=== PATIENT | female | born 2005 | race Caucasian/White ===

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

== ENCOUNTER → 2023-09-14 16:45 | Outpatient (ROUT) | payer OTHER, MEDICAID, SELFPAY ==
[2023-09-14 17:08] LABS: Basophils Absolute Auto 0 /uL (0-100); Basophils Percent Auto 0.4 % (0-2); Eosinophils Absolute Auto 100 /uL (0-450); Eosinophils Percent Auto 2.5 % (2-4); Hematocrit 38.4 % (36-46); Hemoglobin 12.6 g/dL (12.0-16.0); Lymphocytes Absolute Auto 2200 /uL (1100-4500); Lymphocytes Percent Auto 39.1 % (25-40); Mean Corpuscular HGB Conc 32.9 % (30-36); Mean Corpuscular Hemoglobin 27.1 PG (26-34); Mean Corpuscular Volume 82.3 fL (80-100); Monocytes Absolute Auto 400 /uL (0-900); Monocytes Percent Auto 6.8 % (3-14); Neutrophils Absolute Auto 2800 /uL (1500-7000); Neutrophils Percent Auto 51.2 % (50-75); Platelet Count 246 X10^3/uL (150-400); Red Blood Cell Count 4.67 X10^6/uL (4.0-5.2); Red Cell Distribution Width 17.2 % (11.6-14.8); White Blood Cell Count 5.6 X10^3/uL (4.5-11.0)
[2023-09-14 17:09] LABS: Alanine Aminotransferase 17 IU/L (<35); Albumin 4.6 g/dL (3.5-5.0); Albumin Globulin Ratio 1.4 (1.0-2.8); Alkaline Phosphatase 99 U/L (38-126); Aspartate Aminotransferase 18 IU/L (14-36); BUN Creatinine Ratio 17.3 (6-22); Bilirubin Total 0.4 mg/dL (0.2-1.3); Blood Urea Nitrogen 17 mg/dL (7-17); C-Reactive Protein Quant 0.7 mg/dL (<1.0); Calcium 10.2 mg/dL (8.4-10.2); Carbon Dioxide 21 mmol/L (22-32); Chloride 103 mmol/L (98-107); Estimated Glomerular Filt Rate > 60 mL/min (>60); Globulin 3.2 g/dL (1.7-4.1); Glucose 101 mg/dL (70-100); HEMOLYSIS < 15 (0-50); Magnesium 2.1 mg/dL (1.6-2.3); Phosphorous 4.5 mg/dL (4.5-5.5); Potassium 4.9 mmol/L (3.4-5.1); Sodium 137 mmol/L (137-145); Total Protein 7.8 g/dL (6.3-8.2); Triglycerides 296 mg/dL (35-150)
[2023-09-14 17:10] LABS: Add Manual Diff / Slide Review SLIDE REVIEW
[2023-09-14 17:48] LABS: Anisocytosis 1+; Microcytosis 1+
[2023-09-15 17:20] LABS: Prealbumin 39.3 mg/dL (17.6-36.0)
== END ==
PROVIDERS: PCP Internal Medicine; Visit Provider Internal Medicine
DX: K59.9 Functional intestinal disorder, unspecified (principal); R11.0 Nausea; D50.9 Iron deficiency anemia, unspecified; Z79.899 Other long term (current) drug therapy
CPT/HCPCS: 80053; 83735; 84100; 84134; 84478; 85025; 86140

== ENCOUNTER → 2023-09-29 20:06 | Outpatient (ROUT) | payer OTHER, MEDICAID, SELFPAY ==
[2023-09-29 20:16] LABS: Add Manual Diff / Slide Review NO; Basophils Absolute Auto 0 /uL (0-100); Basophils Percent Auto 0.7 % (0-2); Eosinophils Absolute Auto 100 /uL (0-450); Eosinophils Percent Auto 2.5 % (2-4); Hematocrit 38.3 % (36-46); Hemoglobin 12.6 g/dL (12.0-16.0); Lymphocytes Absolute Auto 1700 /uL (1100-4500); Lymphocytes Percent Auto 32.6 % (25-40); Mean Corpuscular HGB Conc 32.8 % (30-36); Mean Corpuscular Hemoglobin 27.2 PG (26-34); Mean Corpuscular Volume 82.9 fL (80-100); Monocytes Absolute Auto 500 /uL (0-900); Monocytes Percent Auto 10.1 % (3-14); Neutrophils Absolute Auto 2800 /uL (1500-7000); Neutrophils Percent Auto 54.1 % (50-75); Platelet Count 257 X10^3/uL (150-400); Red Blood Cell Count 4.62 X10^6/uL (4.0-5.2); Red Cell Distribution Width 14.8 % (11.6-14.8); White Blood Cell Count 5.2 X10^3/uL (4.5-11.0)
[2023-09-29 20:23] LABS: Alanine Aminotransferase 14 IU/L (<35); Albumin 4.6 g/dL (3.5-5.0); Albumin Globulin Ratio 1.4 (1.0-2.8); Alkaline Phosphatase 109 U/L (38-126); BUN Creatinine Ratio 16.2 (6-22); Bilirubin Total 0.5 mg/dL (0.2-1.3); Blood Urea Nitrogen 17 mg/dL (7-17); Calcium 9.8 mg/dL (8.4-10.2); Carbon Dioxide 20 mmol/L (22-32); Chloride 102 mmol/L (98-107); Estimated Glomerular Filt Rate > 60 mL/min (>60); Globulin 3.2 g/dL (1.7-4.1); Glucose 100 mg/dL (70-100); Magnesium 2.5 mg/dL (1.6-2.3); Phosphorous 3.6 mg/dL (4.5-5.5); Potassium 5.2 mmol/L (3.4-5.1); Sodium 135 mmol/L (137-145); Total Protein 7.8 g/dL (6.3-8.2); Triglycerides 345 mg/dL (35-150)
[2023-09-29 20:28] LABS: Prealbumin 35.1 mg/dL (17.6-36.0)
[2023-10-02 16:06] LABS: HEMOLYSIS 25 (0-50)
[2023-10-02 16:07] LABS: Aspartate Aminotransferase 16 IU/L (14-36)
== END ==
PROVIDERS: PCP Internal Medicine; Visit Provider Internal Medicine
DX: K59.9 Functional intestinal disorder, unspecified (principal); R11.0 Nausea; D50.9 Iron deficiency anemia, unspecified; Z79.899 Other long term (current) drug therapy
CPT/HCPCS: 80053; 83735; 84100; 84134; 84478; 85025; 86140

== ENCOUNTER → 2023-10-12 17:20 | Outpatient (ROUT) | payer OTHER, MEDICAID, SELFPAY ==
[2023-10-12 17:45] LABS: Add Manual Diff / Slide Review NO; Basophils Absolute Auto 0 /uL (0-100); Basophils Percent Auto 0.6 % (0-2); Eosinophils Absolute Auto 100 /uL (0-450); Eosinophils Percent Auto 2.3 % (2-4); Hematocrit 36.5 % (36-46); Hemoglobin 12.1 g/dL (12.0-16.0); Lymphocytes Absolute Auto 2000 /uL (1100-4500); Lymphocytes Percent Auto 37.5 % (25-40); Mean Corpuscular HGB Conc 33.1 % (30-36); Mean Corpuscular Hemoglobin 27.5 PG (26-34); Mean Corpuscular Volume 83.1 fL (80-100); Monocytes Absolute Auto 500 /uL (0-900); Monocytes Percent Auto 8.8 % (3-14); Neutrophils Absolute Auto 2700 /uL (1500-7000); Neutrophils Percent Auto 50.8 % (50-75); Platelet Count 222 X10^3/uL (150-400); Red Blood Cell Count 4.39 X10^6/uL (4.0-5.2); Red Cell Distribution Width 13.7 % (11.6-14.8); White Blood Cell Count 5.2 X10^3/uL (4.5-11.0)
[2023-10-12 18:15] LABS: Alanine Aminotransferase 12 IU/L (<35); Albumin 4.3 g/dL (3.5-5.0); Albumin Globulin Ratio 1.4 (1.0-2.8); Alkaline Phosphatase 117 U/L (38-126); Aspartate Aminotransferase 16 IU/L (14-36); BUN Creatinine Ratio 15.1 (6-22); Bilirubin Total 0.4 mg/dL (0.2-1.3); Blood Urea Nitrogen 16 mg/dL (7-17); Calcium 9.6 mg/dL (8.4-10.2); Carbon Dioxide 22 mmol/L (22-32); Chloride 102 mmol/L (98-107); Estimated Glomerular Filt Rate > 60 mL/min (>60); Globulin 3.1 g/dL (1.7-4.1); Glucose 70 mg/dL (70-100); HEMOLYSIS 20 (0-50); Magnesium 2.4 mg/dL (1.6-2.3); Phosphorous 4.5 mg/dL (4.5-5.5); Potassium 4.9 mmol/L (3.4-5.1); Sodium 135 mmol/L (137-145); Total Protein 7.4 g/dL (6.3-8.2)
== END ==
PROVIDERS: PCP Internal Medicine; Visit Provider Internal Medicine
DX: K59.9 Functional intestinal disorder, unspecified (principal); R11.0 Nausea; Z79.899 Other long term (current) drug therapy; D50.9 Iron deficiency anemia, unspecified
CPT/HCPCS: 80053; 83735; 84100; 85025

== ENCOUNTER → 2023-10-26 16:16 | Outpatient (ROUT) | payer OTHER, MEDICAID, SELFPAY ==
[2023-10-26 16:24] LABS: Add Manual Diff / Slide Review NO; Basophils Absolute Auto 0 /uL (0-100); Basophils Percent Auto 0.8 % (0-2); Eosinophils Absolute Auto 100 /uL (0-450); Hematocrit 36.6 % (36-46); Hemoglobin 11.9 g/dL (12.0-16.0); Lymphocytes Absolute Auto 2200 /uL (1100-4500); Lymphocytes Percent Auto 37.3 % (25-40); Mean Corpuscular HGB Conc 32.6 % (30-36); Mean Corpuscular Hemoglobin 26.9 PG (26-34); Mean Corpuscular Volume 82.6 fL (80-100); Monocytes Absolute Auto 400 /uL (0-900); Monocytes Percent Auto 6.9 % (3-14); Neutrophils Absolute Auto 3100 /uL (1500-7000); Platelet Count 224 X10^3/uL (150-400); Red Blood Cell Count 4.43 X10^6/uL (4.0-5.2); Red Cell Distribution Width 13.6 % (11.6-14.8); White Blood Cell Count 5.8 X10^3/uL (4.5-11.0)
[2023-10-26 16:37] LABS: Alanine Aminotransferase 31 IU/L (<35); Albumin 4.4 g/dL (3.5-5.0); Albumin Globulin Ratio 1.3 (1.0-2.8); Alkaline Phosphatase 122 U/L (38-126); Aspartate Aminotransferase 22 IU/L (14-36); BUN Creatinine Ratio 9.8 (6-22); Bilirubin Total 0.4 mg/dL (0.2-1.3); Blood Urea Nitrogen 12 mg/dL (7-17); Calcium 9.8 mg/dL (8.4-10.2); Carbon Dioxide 22 mmol/L (22-32); Chloride 105 mmol/L (98-107); Estimated Glomerular Filt Rate > 60 mL/min (>60); Globulin 3.3 g/dL (1.7-4.1); Glucose 86 mg/dL (70-100); HEMOLYSIS < 15 (0-50); Magnesium 1.6 mg/dL (1.6-2.3); Phosphorous 4.7 mg/dL (4.5-5.5); Potassium 4.7 mmol/L (3.4-5.1); Sodium 137 mmol/L (137-145); Total Protein 7.7 g/dL (6.3-8.2)
== END ==
PROVIDERS: PCP Internal Medicine; Visit Provider Internal Medicine
DX: K59.9 Functional intestinal disorder, unspecified (principal); R11.0 Nausea; D50.9 Iron deficiency anemia, unspecified; Z79.899 Other long term (current) drug therapy
CPT/HCPCS: 80053; 83735; 84100; 85025

== ENCOUNTER → 2023-11-09 17:12 | Outpatient (ROUT) | payer OTHER, MEDICAID, SELFPAY ==
[2023-11-09 18:08] LABS: Add Manual Diff / Slide Review NO; Basophils Absolute Auto 0 /uL (0-100); Basophils Percent Auto 0.7 % (0-2); Eosinophils Absolute Auto 100 /uL (0-450); Eosinophils Percent Auto 1.9 % (2-4); Hematocrit 37.7 % (36-46); Hemoglobin 12.1 g/dL (12.0-16.0); Lymphocytes Absolute Auto 2400 /uL (1100-4500); Lymphocytes Percent Auto 39.5 % (25-40); Mean Corpuscular HGB Conc 32.1 % (30-36); Mean Corpuscular Hemoglobin 26.7 PG (26-34); Mean Corpuscular Volume 83.2 fL (80-100); Monocytes Absolute Auto 300 /uL (0-900); Monocytes Percent Auto 4.2 % (3-14); Neutrophils Absolute Auto 3200 /uL (1500-7000); Neutrophils Percent Auto 53.7 % (50-75); Platelet Count 265 X10^3/uL (150-400); Red Blood Cell Count 4.54 X10^6/uL (4.0-5.2); Red Cell Distribution Width 13.9 % (11.6-14.8)
[2023-11-09 18:19] LABS: Alanine Aminotransferase 34 IU/L (<35); Albumin 4.6 g/dL (3.5-5.0); Albumin Globulin Ratio 1.4 (1.0-2.8); Alkaline Phosphatase 110 U/L (38-126); Aspartate Aminotransferase 23 IU/L (14-36); BUN Creatinine Ratio 13.2 (6-22); Bilirubin Total 0.4 mg/dL (0.2-1.3); Blood Urea Nitrogen 16 mg/dL (7-17); C-Reactive Protein Quant 0.8 mg/dL (<1.0); Calcium 9.5 mg/dL (8.4-10.2); Carbon Dioxide 18 mmol/L (22-32); Chloride 103 mmol/L (98-107); Estimated Glomerular Filt Rate > 60 mL/min (>60); Globulin 3.2 g/dL (1.7-4.1); Glucose 104 mg/dL (70-100); HEMOLYSIS 20 (0-50); Magnesium 2.2 mg/dL (1.6-2.3); Phosphorous 4.5 mg/dL (4.5-5.5); Potassium 4.9 mmol/L (3.4-5.1); Sodium 137 mmol/L (137-145); Total Protein 7.8 g/dL (6.3-8.2); Triglycerides 257 mg/dL (35-150)
[2023-11-09 18:24] LABS: Prealbumin 38.2 mg/dL (17.6-36.0)
== END ==
PROVIDERS: PCP Internal Medicine; Visit Provider Internal Medicine
DX: K59.9 Functional intestinal disorder, unspecified (principal); R11.0 Nausea; Z79.899 Other long term (current) drug therapy; D50.9 Iron deficiency anemia, unspecified
CPT/HCPCS: 80053; 83735; 84100; 84134; 84478; 85025; 86140

== ENCOUNTER → 2023-11-23 18:20 | Outpatient (ROUT) | payer OTHER, MEDICAID, SELFPAY ==
[2023-11-23 18:26] LABS: Add Manual Diff / Slide Review NO; Basophils Absolute Auto 0 /uL (0-100); Basophils Percent Auto 0.8 % (0-2); Eosinophils Absolute Auto 200 /uL (0-450); Eosinophils Percent Auto 2.8 % (2-4); Hematocrit 36.3 % (36-46); Hemoglobin 11.7 g/dL (12.0-16.0); Lymphocytes Absolute Auto 2300 /uL (1100-4500); Lymphocytes Percent Auto 40.8 % (25-40); Mean Corpuscular HGB Conc 32.2 % (30-36); Mean Corpuscular Hemoglobin 26.5 PG (26-34); Mean Corpuscular Volume 82.3 fL (80-100); Monocytes Absolute Auto 400 /uL (0-900); Monocytes Percent Auto 6.9 % (3-14); Neutrophils Absolute Auto 2700 /uL (1500-7000); Neutrophils Percent Auto 48.7 % (50-75); Platelet Count 241 X10^3/uL (150-400); Red Blood Cell Count 4.41 X10^6/uL (4.0-5.2); Red Cell Distribution Width 14.2 % (11.6-14.8); White Blood Cell Count 5.5 X10^3/uL (4.5-11.0)
[2023-11-23 18:35] LABS: Alanine Aminotransferase 28 IU/L (<35); Albumin 4.4 g/dL (3.5-5.0); Albumin Globulin Ratio 1.4 (1.0-2.8); Alkaline Phosphatase 105 U/L (38-126); Aspartate Aminotransferase 18 IU/L (14-36); BUN Creatinine Ratio 13.1 (6-22); Bilirubin Total 0.4 mg/dL (0.2-1.3); Blood Urea Nitrogen 16 mg/dL (7-17); Calcium 9.4 mg/dL (8.4-10.2); Carbon Dioxide 20 mmol/L (22-32); Chloride 105 mmol/L (98-107); Estimated Glomerular Filt Rate > 60 mL/min (>60); Globulin 3.2 g/dL (1.7-4.1); Glucose 75 mg/dL (70-100); HEMOLYSIS < 15 (0-50); Magnesium 2.3 mg/dL (1.6-2.3); Phosphorous 4.4 mg/dL (4.5-5.5); Sodium 136 mmol/L (137-145); Total Protein 7.6 g/dL (6.3-8.2)
== END ==
PROVIDERS: PCP Internal Medicine; Visit Provider Internal Medicine
DX: K59.9 Functional intestinal disorder, unspecified (principal); R11.0 Nausea; Z79.899 Other long term (current) drug therapy; D50.9 Iron deficiency anemia, unspecified
CPT/HCPCS: 80053; 83735; 84100; 85025

== ENCOUNTER 2023-11-27 00:17 | Emergency (ER) | payer OTHER, MEDICAID, SELFPAY ==
[2023-11-27 00:23] VITALS: BP 147/78; PULSE 88; RESP 18; TEMP 36.6; O2SAT 100; BMI 40.3
[2023-11-27 00:48] VITALS: PULSE 80; RESP 18; O2SAT 100
--- NOTE | 2023-11-27 00:53 | ED.GENADULT ---
HPI - General Adult General Chief complaint: Abdominal Pain Stated complaint: abd pain possible bowel obstruction Time Seen by Provider: 11/27/23 00:29 Source: patient and family Mode of arrival: Wheelchair History of Present Illness HPI narrative: Patient is a 18-year-old female with multiple chronic medical issues. Here for evaluation of abdominal pain and concern for bowel obstruction. She was concerned that she was constipated. Has tried enemas at home but feels like her abdomen is distended. Is having nausea no vomiting. No fevers. Patient is on TPN because of her chronic issues. Does see a product builder at the [facility]. States she gets most of her care at the [facility] however today her pain was so bad that she did not think that she could drive down for evaluation there. Related Data Home Medications Medication Instructions Recorded Confirmed acetaminophen 325 mg tablet 325 mg PO PRN PRN ##0 07/10/17 10/20/19 cholecalciferol (vitamin D3) 25 1,000 unit PO DAILY 11/17/18 10/20/19 mcg (1,000 unit) capsule vitamin E 200 unit capsule 200 unit PO DAILY 11/17/18 10/20/19 ascorbate calcium (vitamin C) 500 500 mg PO DAILY 07/11/20 07/11/20 mg tablet lactulose 10 gram/15 mL (15 mL) 15 gram PO TID PRN constipation 07/11/20 07/11/20 oral solution Previous Rx's Medication Instructions Recorded Lactobacillus rhamnosus GG 15 1 cap PO DAILY #90 caps 07/16/20 billion cell sprinkle capsule (Culturelle) lamotrigine 100 mg tablet 100 mg PO BID Moodiness #60 tabs 01/23/21 (Lamictal) sertraline 100 mg tablet (Zoloft) 100 mg PO QDAY OCD #30 tabs 01/23/21 amitriptyline 50 mg tablet 50 mg PO DAILY #30 tabs 04/11/21 hydroxyzine HCl 25 mg tablet 25 mg PO BEDTIME #60 tabs 04/11/21 levothyroxine 112 mcg tablet 112 mcg PO DAILY #90 tabs 04/11/21 lubiprostone 24 mcg capsule 24 mcg PO BID #60 caps 04/11/21 prucalopride 2 mg tablet 2 mg feeding tube Q24H #30 tabs 04/11/21 ramelteon 8 mg tablet 8 mg PO BEDTIME #30 tabs 04/11/21 mupirocin 2 % topical ointment 1 applic topical BID #15 grams 05/14/21 famotidine 20 mg tablet 20 mg PO BID #120 tabs 06/14/21 norethindrone acetate 5 mg tablet 5 mg PO DAILY #30 tabs 06/14/21 ondansetron 4 mg disintegrating 4 mg PO Q12H PRN nausea and 06/14/21 tablet vomiting #7 tabs sennosides 8.6 mg tablet (senna) 12.9 mg (1.5 x 8.6 mg) PO DAILY 06/14/21 #135 tabs oxycodone-acetaminophen 5 mg-325 1 tab PO Q6H PRN pain #10 tabs 08/05/22 mg tablet (Percocet) Allergies Allergy/AdvReac Type Severity Reaction Status Date / Time Sulfa (Sulfonamide Allergy Severe vomit Verified 08/05/22 01:14 Antibiotics) ibuprofen [IBUPROFEN] Allergy Unknown Verified 08/05/22 01:14 pineapple [PINEAPPLE] Allergy Unknown Verified 08/05/22 01:14 gabapentin [GABAPENTIN] AdvReac Unknown tinitus Verified 08/05/22 01:14 lorazepam AdvReac Agitated Verified 08/05/22 01:14 pregabalin [From Lyrica] AdvReac Shakiness Verified 08/05/22 01:14 biopatch Allergy Uncoded 09/28/21 19:43 Review of Systems Constitutional Constitutional: Reports system reviewed and no additional complaints, except as documented Respiratory Respiratory: Reports system reviewed and no additional complaints, except as documented Gastrointestinal Gastrointestinal: Reports system reviewed and no additional complaints, except as documented Genitourinary Genitourinary: Reports system reviewed and no additional complaints, except as documented Patient History Medical History Family disruption due to divorce Sleep disturbance 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) Chronic back pain (04/30/17) Joint laxity (06/26/17) Acquired absence of kidney (03/27/17) 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) Dysmenorrhea treated with oral contraceptive (03/27/17) Seizure Shoulder subluxation, left Muscle spasm of back Conversion disorder Suicidal ideation Acute psychosis Attention deficit hyperactivity disorder (ADHD), combined type Panic anxiety syndrome Obsessive compulsive disorder Social History Smoking Status: Never smoker Smoking Status: Never smoker Substance Use Type: does not use Exam Initial Vital Signs Initial Vital Signs: Vital Signs Temperature 97.8 F 11/27/23 00:23 Pulse Rate 88 11/27/23 00:23 Respiratory Rate 18 11/27/23 00:23 Blood Pressure 147/78 H 11/27/23 00:23 Pulse Oximetry 100 11/27/23 00:23 Oxygen Delivery Method Room Air 11/27/23 00:23 HENMT Head: normal to inspection and normocephalic Resp Effort & Inspection: normal respiratory effort Cardio Rate: regular rate GI Inspection: non-distended Palpation: soft and tender (Diffusely tender) Neuro General: patient alert and patient awake Course Orders Ordered: ED Orders 11/27/23 00:54 CT abdomen pelvis wo con Stat 11/27/23 01:02 Complete Blood Count AUTO DIFF Stat Comprehensive Metabolic Panel Stat Lipase Stat 11/27/23 02:12 US pelvic complete Stat Discontinued Medications Diphenhydramine HCl (Diphenhydramine 50 Mg/Ml Vial) 50 mg IV NOW ONE Stop: 11/27/23 04:07 Last Admin: 11/27/23 04:12 Dose: 50 mg Documented By: HARDEEP Hydromorphone HCl (Hydromorphone 1 Mg Inj) 1 mg IV NOW ONE Stop: 11/27/23 00:54 Last Admin: 11/27/23 01:06 Dose: 1 mg Documented By: HARDEEP Hydromorphone HCl (Hydromorphone 1 Mg Inj) 1 mg IV NOW ONE Stop: 11/27/23 02:14 Last Admin: 11/27/23 02:52 Dose: 1 mg Documented By: HARDEEP Sodium Chloride (Normal Saline 0.9%) 1,000 mls @ 1,000 mls/hr IV BOLUS ONE Stop: 11/27/23 01:52 Last Infusion: 11/27/23 02:33 Dose: Infused Documented By: Admin: 11/27/23 01:26 Dose: 1,000 mls/hr Documented By: HARDEEP Vital Signs Vital signs: Vital Signs - 8 hr 11/27/23 00:23 11/27/23 00:48 11/27/23 04:36 Temperature 97.8 F Pulse Rate 88 80 79 Respiratory Rate 18 18 18 Blood Pressure 147/78 H 111/70 Pulse Oximetry 100 100 98 Oxygen Delivery Method Room Air Room Air Room Air Medical Decision Making Lab Data Lab results reviewed: Yes I reviewed the patient's lab results. 11/27/23 01:02 11/27/23 01:02 Labs: Lab Results 11/27/23 Range/Units 01:02 WBC 9.8 (4.5-11.0) X10^3/uL RBC 4.51 (4.0-5.2) X10^6/uL Hgb 12.1 (12.0-16.0) g/dL Hct 36.8 (36-46) % MCV 81.5 (80-100) fL MCH 26.8 (26-34) PG MCHC 32.9 (30-36) % RDW 14.1 (11.6-14.8) % Plt Count 271 (150-400) X10^3/uL Neut % (Auto) 76.9 H (50-75) % Lymph % (Auto) 17.0 L (25-40) % [place] % (Auto) 4.8 (3-14) % Eos % (Auto) 0.7 L (2-4) % Baso % (Auto) 0.6 (0-2) % Neut # (Auto) 7500 H (8614-1615) /uL Lymph # (Auto) 1700 (2355-0828) /uL [place] # (Auto) 500 (0-900) /uL Eos # (Auto) 100 (0-450) /uL Baso # (Auto) 100 (0-100) /uL Sodium 139 (137-145) mmol/L Potassium 4.8 (3.4-5.1) mmol/L Chloride 108 H (98-107) mmol/L Carbon Dioxide 19 L (22-32) mmol/L BUN 14 (7-17) mg/dL Creatinine 1.14 H (0.52-1.04) mg/dL Estimated GFR > 60 (>60) mL/min BUN/Creatinine Ratio 12.3 (6-22) Glucose 105 H (70-100) mg/dL Calcium 9.7 (8.4-10.2) mg/dL Total Bilirubin 0.4 (0.2-1.3) mg/dL AST 20 (14-36) IU/L ALT 27 (<35) IU/L Alkaline Phosphatase 96 (38-126) U/L Total Protein 8.2 (6.3-8.2) g/dL Albumin 4.5 (3.5-5.0) g/dL Globulin 3.7 (1.7-4.1) g/dL Albumin/Globulin Ratio 1.2 (1.0-2.8) Lipase 99 (23-300) U/L Imaging Data CT scan - abdomen/pelvis: Radiologist's Impression: PROCEDURE: CT ABDOMEN PELVIS WO CON INDICATIONS: Generalized abdominal pain TECHNIQUE: Axial sections were acquired from the lung bases to the pubic symphysis. Coronal and sagittal reformats were performed. For radiation dose reduction, the following was used: automated exposure control, adjustment of mA and/or kV according to patient size. COMPARISON: [facility], CT, CT ABDOMEN PELVIS W CON, 08/05/2022, 3:21. FINDINGS: Image quality: Diagnostic. Lower Chest: No significant findings. URINARY: Right Kidney: No stones or hydronephrosis. Right Ureter: No hydroureter. Left Kidney: Surgically absent Bladder: Normal wall thickness. No stones. ABDOMEN: Liver: No contour-deforming solid mass. Gallbladder: No radiopaque gallstones or wall thickening. Biliary ducts: No biliary dilation. Pancreas: No ductal dilation. Spleen: Size is within normal limits. Adrenal Glands: No adrenal nodules. Stomach and Bowel: The distal descending and sigmoid colon is relatively decompressed. Proximal this there is a large burden of stool with areas of colonic wall thickening. Normal appendix. Peritoneum: No abnormal intraperitoneal fluid. No free air. Ventral Wall: No hernia. Subcutaneous stranding and emphysema within the lower anterior abdominal wall, likely injection related. Abdominal Nodes: No enlarged retroperitoneal or mesenteric lymph nodes. Prominent right lower quadrant mesenteric lymph nodes are stable compared to prior. Vessels: Aorta and inferior vena cava are normal in size. PELVIS: Pelvic Organs: Unremarkable. Pelvic Nodes: Unremarkable. Miscellaneous: No inguinal hernias are seen. Bones: Unremarkable. IMPRESSION: Large burden of stool throughout the colon with areas of colonic wall thickening, most notable within the descending colon with mild surrounding inflammatory changes. Findings concerning for constipation and colitis. US - INSTRUCTIONAL SERVICES LIBRARIAN: Radiologist's Impression: Normal sonographic appearance of the uterus and bilateral adnexa MDM Narrative Medical decision making narrative: Longstanding chronic medical issues. CT scan performed to evaluate for bowel obstruction however the patient declined to have this with contrast. Both patient and mother is at bedside understand the limitations with this as we are not able to evaluate the vasculature of the abdomen. CT scan consistent with constipation. No signs of obstructions. No indication for surgical consultation. No indication for admission to the hospital. After patient was initially discharged patient and mother concerned about potential other etiologies. The feel that this is unlikely however they were concerned about ovaries she does have history of ovarian torsion. Ultrasound was ordered. Patient declined the intravaginal portion of the ultrasound. Ultrasound is unremarkable. No further workup required here in the emergency department. Patient should contact her product builder to discuss further medications for good bowel regimen. Patient is safe for discharge home. Discharge Plan Departure Patient Disposition: Home Clinical Impression: Constipation Instructions: DI for Constipation Activity Restrictions/Additional Instructions: Unfortunately there is not much more out of the emergency department that we can offer this evening other than recommending that contact your GI doctor in the morning. Potentially your GI doctor can have further recommendations with regard to a good bowel regimen. Continue all of your medications as directed. Prescriptions: No Action prucalopride 2 mg tablet 2 mg feeding tube Q24H Qty: 30 3RF lubiprostone 24 mcg capsule 24 mcg PO BID Qty: 60 3RF amitriptyline 50 mg tablet 50 mg PO DAILY Qty: 30 3RF levothyroxine 112 mcg tablet 112 mcg PO DAILY Qty: 90 0RF ramelteon 8 mg tablet 8 mg PO BEDTIME Qty: 30 3RF ascorbate calcium (vitamin C) 500 mg tablet 500 mg PO DAILY lactulose 10 gram/15 mL (15 mL) solution 15 gram PO TID PRN (Reason: constipation) cholecalciferol (vitamin D3) 1,000 unit capsule 1,000 unit PO DAILY vitamin E 200 unit capsule 200 unit PO DAILY acetaminophen 325 MG tablet 325 mg PO PRN PRNQty: 0 Culturelle 15 billion cell capsule, sprinkle 1 cap PO DAILY Qty: 90 0RF lamotrigine [Lamictal] 100 mg tablet 100 mg PO BID MDD 200 mg Qty: 60 2RF Rx Instructions: Take 1 tab in the morning and 1 tab at bedtime for moodiness sertraline [Zoloft] 100 mg tablet 100 mg PO QDAY MDD 100 mg Qty: 30 2RF Rx Instructions: Take 1 tab mornings for OCD hydroxyzine HCl 25 mg tablet 25 mg PO BEDTIME Qty: 60 2RF mupirocin 2 % ointment 1 applic topical BID Qty: 15 2RF famotidine 20 mg tablet 20 mg PO BID Qty: 120 0RF sennosides [senna] 8.6 mg tablet 12.9 mg PO DAILY Qty: 135 0RF norethindrone acetate 5 mg tablet 5 mg PO DAILY Qty: 30 0RF ondansetron 4 mg tablet,disintegrating 4 mg PO Q12H PRN (Reason: nausea and vomiting) Qty: 7 0RF oxycodone-acetaminophen [Percocet] 5-325 mg tablet 1 tab PO Q6H PRN (Reason: pain) Qty: 10 0RF Referrals: Aster Meneses MD [Primary Care Provider] - Stand Alone Forms: Patient Portal/API
[2023-11-27] MEDS: HYDROMORPHONE 1 MG INJ IV ×2 (01:06→02:52)
[2023-11-27 01:13] LABS: Add Manual Diff / Slide Review NO; Basophils Absolute Auto 100 /uL (0-100); Basophils Percent Auto 0.6 % (0-2); Eosinophils Absolute Auto 100 /uL (0-450); Eosinophils Percent Auto 0.7 % (2-4); Hematocrit 36.8 % (36-46); Hemoglobin 12.1 g/dL (12.0-16.0); Lymphocytes Absolute Auto 1700 /uL (1100-4500); Mean Corpuscular HGB Conc 32.9 % (30-36); Mean Corpuscular Hemoglobin 26.8 PG (26-34); Mean Corpuscular Volume 81.5 fL (80-100); Monocytes Absolute Auto 500 /uL (0-900); Monocytes Percent Auto 4.8 % (3-14); Neutrophils Absolute Auto 7500 /uL (1500-7000); Neutrophils Percent Auto 76.9 % (50-75); Platelet Count 271 X10^3/uL (150-400); Red Blood Cell Count 4.51 X10^6/uL (4.0-5.2); Red Cell Distribution Width 14.1 % (11.6-14.8); White Blood Cell Count 9.8 X10^3/uL (4.5-11.0)
[2023-11-27 01:21] LABS: Alanine Aminotransferase 27 IU/L (<35); Albumin 4.5 g/dL (3.5-5.0); Albumin Globulin Ratio 1.2 (1.0-2.8); Alkaline Phosphatase 96 U/L (38-126); Aspartate Aminotransferase 20 IU/L (14-36); BUN Creatinine Ratio 12.3 (6-22); Bilirubin Total 0.4 mg/dL (0.2-1.3); Blood Urea Nitrogen 14 mg/dL (7-17); Calcium 9.7 mg/dL (8.4-10.2); Carbon Dioxide 19 mmol/L (22-32); Chloride 108 mmol/L (98-107); Estimated Glomerular Filt Rate > 60 mL/min (>60); Globulin 3.7 g/dL (1.7-4.1); Glucose 105 mg/dL (70-100); HEMOLYSIS 16 (0-50); Lipase 99 U/L (23-300); Potassium 4.8 mmol/L (3.4-5.1); Sodium 139 mmol/L (137-145); Total Protein 8.2 g/dL (6.3-8.2)
[2023-11-27] MEDS: SODIUM CHLORIDE 0.9% 1,000 ML 1000 ML IV (01:26)
--- NOTE | 2023-11-27 02:12 | DI.US.S_ITS ---
PROCEDURE: US PELVIC COMPLETE INDICATIONS: abd pain eval hx of ovarian torsion TECHNIQUE: Real-time scanning was performed of the pelvic organs, with image documentation. Patient declined transvaginal exam. Technically limited study secondary to patient body habitus and gas. COMPARISON: [facility], , PELVIC COMPLETE, 10/10/2021, 9:26. FINDINGS: Uterus: Uterus is anteverted and normal in size at 5.6 x 4.5 x 2.2 cm. The myometrium is homogeneous. The endometrium is not well seen on transabdominal views. Cervix and vagina are within normal limits. Ovaries: The right ovary measures 2.6 x 1.7 x 1.2 cm, with a calculated ovarian volume of 2.8 cc. The left ovary measures 2 x 1.4 x 1.3 cm, with a calculated ovarian volume of 1.9 cc. The ovaries have a normal sonographic appearance. Less than 12 follicles can be seen in each ovary. No adnexal masses are seen. Blood flow is demonstrated to the bilateral ovaries. Normal spectral and Doppler images of both ovaries. Other: No pathologic free abdominal or pelvic fluid. IMPRESSION: Technically limited study due to transabdominal images which were limited by body habitus and gas. 1. Normal sonographic grayscale and color Doppler appearance of the uterus and bilateral adnexa. 2. Endometrium is not well visualized. I agree with the preliminary report. Dictated by: Juhi Bloom M.D. on 11/27/2023 at 7:49 Approved by: Juhi Bloom M.D. on 11/27/2023 at 7:52
[2023-11-27] MEDS: diphenhydrAMINE 50 MG/ML VIAL IV (04:12)
[2023-11-27 04:36] VITALS: BP 111/70; PULSE 79; RESP 18; O2SAT 98
== END 2023-11-27 04:55 | disposition home or self-care (01) ==
PROVIDERS: Emergency Provider Emergency Medicine; PCP Internal Medicine
DX: K59.00 Constipation, unspecified (principal)
CPT/HCPCS: 74176; 76856; 80053; 83690; 85025; 93975; 96374; 96375; 96376; 99283; 99284; J1170; J1200

== ENCOUNTER 2023-11-28 21:49 | Emergency (ER) | payer OTHER, MEDICAID, SELFPAY ==
[2023-11-28] VITALS (7 sets, daily range): BP systolic 122–143; BP diastolic 80–82; PULSE 112–135; RESP 18–24; TEMP 36.9; O2SAT 98–100; BMI 39.9
--- NOTE | 2023-11-28 22:07 | DI.RAD.S_ITS ---
PROCEDURE: XR CHEST 1V INDICATIONS: suspected sepsis TECHNIQUE: One view of the chest was acquired. COMPARISON: [facility], CR, XR CHEST 1V, 09/28/2021, 20:02. FINDINGS: Surgical changes and devices: There is a left-sided central line seen, with the tip overlying the superior aspect of the superior vena cava Lungs and pleura: Lungs are clear. No pleural effusions or pneumothorax. Mediastinum: Mediastinal contours appear normal. Heart size is normal. Bones and chest wall: No suspicious bony lesions. Overlying soft tissues appear unremarkable. IMPRESSION: No focal infiltrates are seen. The tip of the left-sided central line overlies the superior aspect of the superior vena cava. Dictated by: Gurwinder Burrows M.D. on 11/28/2023 at 23:39 Approved by: Gurwinder Burrows M.D. on 11/28/2023 at 23:39
[2023-11-28] MEDS: ONDANSETRON 4 MG/2 ML INJ IV (22:20)
[2023-11-28] MEDS: SODIUM CHLORIDE 0.9% 1,000 ML 1000 ML IV (22:20)
[2023-11-28] MEDS: HYDROMORPHONE 0.5 MG INJ IV (22:20)
--- NOTE | 2023-11-28 22:43 | ED_ITS ---
HPI - Abdominal Pain <Rekha Rosas, - Last Filed: 12/07/23 07:13> General Chief Complaint: Abdominal Pain Stated Complaint: ABD pain Time Seen by Provider: 11/28/23 22:22 Source: patient and family Mode of arrival: EMS Limitations: no limitations History of Present Illness HPI narrative: 16-year-old female with multiple medical diagnosis including Juanita-Danlos, severe gastroparesis was central line getting TPN daily, MALS (Median arcuate ligament syndrome), DVT of right brachial vein, Lovenox shots chronically, pots, abnormal weight gain patient does follow with gastroenterology at [facility]. Patient presents with abdominal that has been present for some time but worse in the last several days. Was seen here on 12/19 for abdominal pain and concern for bowel obstruction. Patient has had chronic constipation 4 weeks, she has trialed oral medications she has tried enemas without really any improvement she has had very small amounts of stool out at times but now she calls relief. Patient describes general abdominal pain. She also has bilateral lower back pain. She states that is new and different. Until this evening she had had no vomiting until here in the department. She states she does have nausea but she states that has not atypical for her. No fevers. No cold cough congestion. No chest pain or shortness of breath. She denies any vaginal discharge or dysuria, urgency or frequency. She is on TPN for her medical issues. Patient has had prior abdominal surgeries including for MALS. Mom and patient state no significant changes to medications recently. Has multiple allergies. No tobacco, alcohol or recreational drugs. Patient is accompanied by her mother. She arrived via EMS. Patient and mother state that she is supposed to go down to [facility] on Thursday to have a NG tube placed under endoscopy as they are concerned about her constipation but that they were expect to go down to 1 day and not over the weekend and that pain became too intense patient came here locally for care. Related Data Home Medications Medication Instructions Recorded Confirmed vitamin E 200 unit capsule 200 unit PO DAILY 11/17/18 10/20/19 enoxaparin 80 mg/0.8 mL 80 mg Q12H 11/29/23 11/29/23 subcutaneous syringe ezetimibe 10 mg tablet 10 mg PO DAILY 11/29/23 11/29/23 famotidine 20 mg tablet 40 mg PO BID 11/29/23 11/29/23 prucalopride 2 mg tablet 2 mg PO DAILY 11/29/23 11/29/23 (Motegrity) scopolamine base 1 mg over 3 days 1 patch topical Q3D PRN Nausea 11/29/23 11/29/23 transdermal patch Previous Rx's Medication Instructions Recorded lamotrigine 100 mg tablet 100 mg PO BID Moodiness #60 tabs 01/23/21 (Lamictal) sertraline 100 mg tablet (Zoloft) 100 mg PO QDAY OCD #30 tabs 01/23/21 levothyroxine 112 mcg tablet 112 mcg PO DAILY #90 tabs 04/11/21 lubiprostone 24 mcg capsule 24 mcg PO BID #60 caps 04/11/21 ramelteon 8 mg tablet 8 mg PO BEDTIME #30 tabs 04/11/21 norethindrone acetate 5 mg tablet 5 mg PO DAILY #30 tabs 06/14/21 ondansetron 4 mg disintegrating 4 mg PO Q12H PRN nausea and 06/14/21 tablet vomiting #7 tabs sennosides 8.6 mg tablet (senna) 12.9 mg (1.5 x 8.6 mg) PO DAILY 06/14/21 #135 tabs oxycodone-acetaminophen 5 mg-325 1 tab PO Q6H PRN pain #10 tabs 08/05/22 mg tablet (Percocet) Allergies Allergy/AdvReac Type Severity Reaction Status Date / Time Sulfa (Sulfonamide Allergy Severe vomit Verified 08/05/22 01:14 Antibiotics) ibuprofen [IBUPROFEN] Allergy Unknown Verified 08/05/22 01:14 pineapple [PINEAPPLE] Allergy Unknown Verified 08/05/22 01:14 gabapentin [GABAPENTIN] AdvReac Unknown tinitus Verified 08/05/22 01:14 lorazepam AdvReac Agitated Verified 08/05/22 01:14 pregabalin [From Lyrica] AdvReac Shakiness Verified 08/05/22 01:14 biopatch Allergy Uncoded 09/28/21 19:43 Review of Systems <Rekha Rosas DO - Last Filed: 12/07/23 07:13> Review of Systems ROS Unobtainable: All systems reviewed & are unremarkable except as noted in HPI and below Patient History <Rekha Rosas DO - Last Filed: 12/07/23 07:13> Medical History Family disruption due to divorce Sleep disturbance 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) Chronic back pain (04/30/17) Joint laxity (06/26/17) Acquired absence of kidney (03/27/17) 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 Patient sitting upwright hunched over. HEENT: Head normocephalic, atraumatic, EOMI, pupils reactive, face symmetric, moist mucous membranes NECK: Supple, full range of motion CARDIOVASCULAR: Tachycardic but regular rate and rhythm without murmurs, rubs or gallops. Patient has catheter in her left upper chest. No edema bilateral lower extremities. RESPIRATORY: Breath sounds equal bilaterally, no wheezes rales or rhonchi. No tachypnea. No accessory muscle use. ABDOMEN: Soft, generalized tenderness. Normoactive bowel sounds all 4 quadrants. No guarding or rebound, rigidity, no mass : No CVA tenderness EXTREMITIES: Normal range of motion, no clubbing or edema. Neurovascularly intact NEUROLOGICAL: Cranial nerves II through XII grossly intact. Moving all extremities SKIN: Warm, dry, no petechiae, no rashes or lesions. Initial Vital Signs Initial Vital Signs: Vital Signs Pulse Rate 134 H 11/28/23 21:52 Pulse Oximetry 99 11/28/23 21:52 <Lexa Hurst MD - Last Filed: 11/30/23 09:44> Initial Vital Signs Initial Vital Signs: Vital Signs Pulse Rate 134 H 11/28/23 21:52 Pulse Oximetry 99 03/02/24 21:52 Course <Rekha Rosas, - Last Filed: 12/07/23 07:13> Orders Ordered: Discontinued Medications Diphenhydramine HCl (Diphenhydramine 50 Mg/Ml Vial) 50 mg IV NOW ONE Stop: 11/28/23 23:13 Last Admin: 11/28/23 23:26 Dose: 50 mg Documented By: PETTY Diphenhydramine HCl (Diphenhydramine 50 Mg/Ml Vial) 25 mg IV NOW ONE Stop: 11/29/23 06:11 Last Admin: 11/29/23 06:28 Dose: 25 mg Documented By: Diphenhydramine HCl (Diphenhydramine 50 Mg/Ml Vial) 50 mg IV NOW ONE Stop: 11/29/23 12:57 Last Admin: 11/29/23 13:01 Dose: 50 mg Documented By: JAKE Ezetimibe (Ezetimibe 10 Mg Tablet) 10 mg PO NOW ONE Stop: 11/29/23 08:52 Last Admin: 11/29/23 10:33 Dose: Not Given Documented By: JAKE Enoxaparin Sodium (Enoxaparin 100 Mg/Ml Syringe) 80 mg SUBCUT NOW ONE Stop: 11/29/23 11:01 Last Admin: 11/29/23 10:57 Dose: 80 mg Documented By: JAKE Famotidine (Famotidine 20 Mg Tablet) 40 mg PO BID PERCY Last Admin: 11/29/23 10:33 Dose: Not Given Documented By: JAKE Hydromorphone HCl (Hydromorphone 0.5 Mg Inj) 0.5 mg IV NOW ONE Stop: 11/28/23 22:14 Last Admin: 11/28/23 22:20 Dose: 0.5 mg Documented By: KAMI Hydromorphone HCl (Hydromorphone 1 Mg Inj) 1 mg IV NOW ONE Stop: 11/28/23 23:15 Last Admin: 11/29/23 00:43 Dose: 1 mg Documented By: PETTY Hydromorphone HCl (Hydromorphone 0.5 Mg Inj) 0.5 mg IV NOW ONE Stop: 11/29/23 02:25 Last Admin: 11/29/23 02:46 Dose: 0.5 mg Documented By: DONALD Hydromorphone HCl (Hydromorphone 1 Mg Inj) 1 mg IV NOW ONE Stop: 11/29/23 04:47 Last Admin: 11/29/23 05:09 Dose: 1 mg Documented By: AB Hydromorphone HCl (Hydromorphone 1 Mg Inj) 1 mg IM NOW ONE Stop: 11/29/23 07:44 Last Admin: 11/29/23 07:51 Dose: 1 mg Documented By: RB Hydromorphone HCl (Hydromorphone 0.5 Mg Inj) 0.5 mg IV NOW ONE Stop: 11/29/23 09:25 Last Admin: 11/29/23 09:40 Dose: Not Given Documented By: MERLIN Hydromorphone HCl (Hydromorphone 1 Mg Inj) 1 mg IV NOW ONE Stop: 11/29/23 09:42 Last Admin: 11/29/23 10:12 Dose: 1 mg Documented By: JAKE Hydromorphone HCl (Hydromorphone 1 Mg Inj) 1 mg IV NOW ONE Stop: 11/29/23 11:47 Last Admin: 11/29/23 11:52 Dose: 1 mg Documented By: JAKE Hydromorphone HCl (Hydromorphone 1 Mg Inj) 1 mg IV NOW ONE Stop: 11/29/23 14:27 Last Admin: 11/29/23 14:36 Dose: 1 mg Documented By: KIRT Hydromorphone HCl (Hydromorphone 1 Mg Inj) 1 mg IV NOW ONE Stop: 11/29/23 15:36 Last Admin: 11/29/23 15:41 Dose: 1 mg Documented By: KIRT Sodium Chloride (Normal Saline 0.9%) 1,000 mls @ 1,000 mls/hr IV BOLUS ONE Stop: 11/28/23 23:06 Last Infusion: 11/28/23 23:30 Dose: Infused Documented By: Admin: 11/28/23 22:20 Dose: 1,000 mls/hr Documented By: KAMI Sodium Chloride (Normal Saline 0.9%) 1,000 mls @ 1,000 mls/hr IV BOLUS ONE Stop: 11/29/23 01:50 Last Infusion: 11/29/23 02:17 Dose: Infused Documented By: Admin: 11/29/23 01:03 Dose: 1,000 mls/hr Documented By: PETTY Sodium Chloride (Normal Saline 0.9%) 1,000 mls @ 150 mls/hr IV CONT [facility] Last Infusion: 11/29/23 16:45 Dose: Infused Documented By: Admin: 11/29/23 10:12 Dose: 150 mls/hr Documented By: Infusion: 11/29/23 09:28 Dose: Infused Documented By: Admin: 11/29/23 02:47 Dose: 150 mls/hr Documented By: DONALD Acetaminophen (Ofirmev) 1,000 mg in 100 mls @ 400 mls/hr IV NOW ONE Stop: 11/29/23 17:20 Acetaminophen (Ofirmev) 1,000 mg in 100 mls @ 400 mls/hr IV NOW ONE Stop: 11/29/23 02:44 Last Infusion: 11/29/23 04:00 Dose: Infused Documented By: Admin: 11/29/23 02:47 Dose: 400 mls/hr Documented By: DONALD Acetaminophen (Ofirmev) 1,000 mg in 100 mls @ 400 mls/hr IV Q6H PRN PRN Reason: pain Lamotrigine (Lamotrigine 100 Mg Tablet) 100 mg PO NOW ONE Stop: 11/29/23 08:45 Last Admin: 11/29/23 10:32 Dose: Not Given Documented By: JAKE Levothyroxine Sodium (Levothyroxine 112 Mcg Tablet) 112 mcg PO DAILY@0600 [facility] Last Admin: 11/29/23 09:24 Dose: Not Given Documented By: MERLIN Norethindrone (Acetate 5 Mg) 5 mg PO BEDTIME [facility] Ondansetron HCl (Ondansetron 4 Mg/2 Ml Inj) 4 mg IV NOW PRN PRN Reason: Nausea And Vomiting Last Admin: 11/28/23 22:20 Dose: 4 mg Documented By: KAMI Ondansetron HCl (Ondansetron 4 Mg Odt) 4 mg SL NOW PRN PRN Reason: Nausea And Vomiting Ondansetron HCl (Ondansetron 4 Mg/2 Ml Inj) 4 mg IV NOW ONE Stop: 11/29/23 04:47 Last Admin: 11/29/23 05:09 Dose: 4 mg Documented By: Ondansetron HCl (Ondansetron 4 Mg/2 Ml Inj) 4 mg IV Q6HR PRN PRN Reason: Nausea And Vomiting Last Admin: 11/29/23 10:57 Dose: 4 mg Documented By: JAKE Scopolamine (Scopolamine 1 Patch) 1 patch TOP NOW ONE Stop: 11/29/23 12:58 Last Admin: 11/29/23 13:01 Dose: 1 patch Documented By: JAKE Sertraline HCl (Sertraline 50 Mg Tablet) 100 mg PO BEDTIME PERCY Vital Signs Vital signs: Vital Signs - 8 hr 11/29/23 09:00 11/29/23 09:30 11/29/23 10:00 Pulse Rate 96 H 102 H 101 H Respiratory Rate 22 22 14 Blood Pressure Pulse Oximetry 98 98 98 Oxygen Delivery Method 11/29/23 10:30 11/29/23 11:00 11/29/23 11:08 Pulse Rate 98 H 107 H Respiratory Rate Blood Pressure 116/76 Pulse Oximetry 98 98 Oxygen Delivery Method 11/29/23 11:08 11/29/23 11:30 11/29/23 11:33 Pulse Rate 104 H 100 H Respiratory Rate 23 Blood Pressure 131/73 Pulse Oximetry 98 98 Oxygen Delivery Method 11/29/23 11:33 11/29/23 12:00 11/29/23 12:00 Pulse Rate 99 H 97 H Respiratory Rate 20 23 Blood Pressure 127/74 Pulse Oximetry 98 98 Oxygen Delivery Method 11/29/23 12:30 11/29/23 12:30 11/29/23 13:00 Pulse Rate 101 H Respiratory Rate Blood Pressure 129/90 128/60 Pulse Oximetry 99 Oxygen Delivery Method 11/29/23 13:00 11/29/23 13:30 11/29/23 13:30 Pulse Rate 102 H 95 H Respiratory Rate 29 H 16 Blood Pressure 132/68 Pulse Oximetry 97 99 Oxygen Delivery Method 11/29/23 14:00 11/29/23 14:00 11/29/23 14:30 Pulse Rate 97 H 98 H Respiratory Rate 29 H 18 Blood Pressure 129/67 Pulse Oximetry 98 99 Oxygen Delivery Method 11/29/23 14:30 11/29/23 15:00 11/29/23 15:30 Pulse Rate Respiratory Rate Blood Pressure 133/60 138/90 126/71 Pulse Oximetry Oxygen Delivery Method 11/29/23 15:30 11/29/23 16:00 11/29/23 16:00 Pulse Rate 96 H 98 H Respiratory Rate 24 30 H Blood Pressure 132/65 Pulse Oximetry 99 98 Oxygen Delivery Method Room Air <Lexa Hurst MD - Last Filed: 11/30/23 09:44> Orders Ordered: Discontinued Medications Diphenhydramine HCl (Diphenhydramine 50 Mg/Ml Vial) 50 mg IV NOW ONE Stop: 11/28/23 23:13 Last Admin: 11/28/23 23:26 Dose: 50 mg Documented By: PETTY Diphenhydramine HCl (Diphenhydramine 50 Mg/Ml Vial) 25 mg IV NOW ONE Stop: 11/29/23 06:11 Last Admin: 11/29/23 06:28 Dose: 25 mg Documented By: Diphenhydramine HCl (Diphenhydramine 50 Mg/Ml Vial) 50 mg IV NOW ONE Stop: 11/29/23 12:57 Last Admin: 11/29/23 13:01 Dose: 50 mg Documented By: JKAE Ezetimibe (Ezetimibe 10 Mg Tablet) 10 mg PO NOW ONE Stop: 11/29/23 08:52 Last Admin: 11/29/23 10:33 Dose: Not Given Documented By: JAKE Enoxaparin Sodium (Enoxaparin 100 Mg/Ml Syringe) 80 mg SUBCUT NOW ONE Stop: 11/29/23 11:01 Last Admin: 11/29/23 10:57 Dose: 80 mg Documented By: JAKE Famotidine (Famotidine 20 Mg Tablet) 40 mg PO BID PERCY Last Admin: 11/29/23 10:33 Dose: Not Given Documented By: JAKE Hydromorphone HCl (Hydromorphone 0.5 Mg Inj) 0.5 mg IV NOW ONE Stop: 11/28/23 22:14 Last Admin: 11/28/23 22:20 Dose: 0.5 mg Documented By: KAMI Hydromorphone HCl (Hydromorphone 1 Mg Inj) 1 mg IV NOW ONE Stop: 11/28/23 23:15 Last Admin: 11/29/23 00:43 Dose: 1 mg Documented By: PETTY Hydromorphone HCl (Hydromorphone 0.5 Mg Inj) 0.5 mg IV NOW ONE Stop: 11/29/23 02:25 Last Admin: 11/29/23 02:46 Dose: 0.5 mg Documented By: DONALD Hydromorphone HCl (Hydromorphone 1 Mg Inj) 1 mg IV NOW ONE Stop: 11/29/23 04:47 Last Admin: 11/29/23 05:09 Dose: 1 mg Documented By: AB Hydromorphone HCl (Hydromorphone 1 Mg Inj) 1 mg IM NOW ONE Stop: 11/29/23 07:44 Last Admin: 11/29/23 07:51 Dose: 1 mg Documented By: RB Hydromorphone HCl (Hydromorphone 0.5 Mg Inj) 0.5 mg IV NOW ONE Stop: 11/29/23 09:25 Last Admin: 11/29/23 09:40 Dose: Not Given Documented By: MERLIN Hydromorphone HCl (Hydromorphone 1 Mg Inj) 1 mg IV NOW ONE Stop: 11/29/23 09:42 Last Admin: 11/29/23 10:12 Dose: 1 mg Documented By: JAKE Hydromorphone HCl (Hydromorphone 1 Mg Inj) 1 mg IV NOW ONE Stop: 11/29/23 11:47 Last Admin: 11/29/23 11:52 Dose: 1 mg Documented By: JAKE Hydromorphone HCl (Hydromorphone 1 Mg Inj) 1 mg IV NOW ONE Stop: 11/29/23 14:27 Last Admin: 11/29/23 14:36 Dose: 1 mg Documented By: KIRT Hydromorphone HCl (Hydromorphone 1 Mg Inj) 1 mg IV NOW ONE Stop: 11/29/23 15:36 Last Admin: 11/29/23 15:41 Dose: 1 mg Documented By: KIRT Sodium Chloride (Normal Saline 0.9%) 1,000 mls @ 1,000 mls/hr IV BOLUS ONE Stop: 11/28/23 23:06 Last Infusion: 11/28/23 23:30 Dose: Infused Documented By: Admin: 11/28/23 22:20 Dose: 1,000 mls/hr Documented By: KAMI Sodium Chloride (Normal Saline 0.9%) 1,000 mls @ 1,000 mls/hr IV BOLUS ONE Stop: 11/29/23 01:50 Last Infusion: 11/29/23 02:17 Dose: Infused Documented By: Admin: 11/29/23 01:03 Dose: 1,000 mls/hr Documented By: PETTY Sodium Chloride (Normal Saline 0.9%) 1,000 mls @ 150 mls/hr IV CONT [facility] Last Infusion: 11/29/23 16:45 Dose: Infused Documented By: Admin: 11/29/23 10:12 Dose: 150 mls/hr Documented By: Infusion: 11/29/23 09:28 Dose: Infused Documented By: Admin: 11/29/23 02:47 Dose: 150 mls/hr Documented By: DONALD Acetaminophen (Ofirmev) 1,000 mg in 100 mls @ 400 mls/hr IV NOW ONE Stop: 11/29/23 17:20 Acetaminophen (Ofirmev) 1,000 mg in 100 mls @ 400 mls/hr IV NOW ONE Stop: 11/29/23 02:44 Last Infusion: 11/29/23 04:00 Dose: Infused Documented By: Admin: 11/29/23 02:47 Dose: 400 mls/hr Documented By: DONALD Acetaminophen (Ofirmev) 1,000 mg in 100 mls @ 400 mls/hr IV Q6H PRN PRN Reason: pain Lamotrigine (Lamotrigine 100 Mg Tablet) 100 mg PO NOW ONE Stop: 11/29/23 08:45 Last Admin: 11/29/23 10:32 Dose: Not Given Documented By: JAKE Levothyroxine Sodium (Levothyroxine 112 Mcg Tablet) 112 mcg PO DAILY@0600 [facility] Last Admin: 11/29/23 09:24 Dose: Not Given Documented By: MERLIN Norethindrone (Acetate 5 Mg) 5 mg PO BEDTIME [facility] Ondansetron HCl (Ondansetron 4 Mg/2 Ml Inj) 4 mg IV NOW PRN PRN Reason: Nausea And Vomiting Last Admin: 11/28/23 22:20 Dose: 4 mg Documented By: KAMI Ondansetron HCl (Ondansetron 4 Mg Odt) 4 mg SL NOW PRN PRN Reason: Nausea And Vomiting Ondansetron HCl (Ondansetron 4 Mg/2 Ml Inj) 4 mg IV NOW ONE Stop: 11/29/23 04:47 Last Admin: 11/29/23 05:09 Dose: 4 mg Documented By: Ondansetron HCl (Ondansetron 4 Mg/2 Ml Inj) 4 mg IV Q6HR PRN PRN Reason: Nausea And Vomiting Last Admin: 11/29/23 10:57 Dose: 4 mg Documented By: JAKE Scopolamine (Scopolamine 1 Patch) 1 patch TOP NOW ONE Stop: 11/29/23 12:58 Last Admin: 11/29/23 13:01 Dose: 1 patch Documented By: JAKE Sertraline HCl (Sertraline 50 Mg Tablet) 100 mg PO BEDTIME [facility] Vital Signs Vital signs: Vital Signs - 8 hr 11/29/23 09:00 11/29/23 09:30 11/29/23 10:00 Pulse Rate 96 H 102 H 101 H Respiratory Rate 22 22 14 Blood Pressure Pulse Oximetry 98 98 98 Oxygen Delivery Method 11/29/23 10:30 11/29/23 11:00 11/29/23 11:08 Pulse Rate 98 H 107 H Respiratory Rate Blood Pressure 116/76 Pulse Oximetry 98 98 Oxygen Delivery Method 11/29/23 11:08 11/29/23 11:30 11/29/23 11:33 Pulse Rate 104 H 100 H Respiratory Rate 23 Blood Pressure 131/73 Pulse Oximetry 98 98 Oxygen Delivery Method 11/29/23 11:33 11/29/23 12:00 11/29/23 12:00 Pulse Rate 99 H 97 H Respiratory Rate 20 23 Blood Pressure 127/74 Pulse Oximetry 98 98 Oxygen Delivery Method 11/29/23 12:30 11/29/23 12:30 11/29/23 13:00 Pulse Rate 101 H Respiratory Rate Blood Pressure 129/90 128/60 Pulse Oximetry 99 Oxygen Delivery Method 11/29/23 13:00 11/29/23 13:30 11/29/23 13:30 Pulse Rate 102 H 95 H Respiratory Rate 29 H 16 Blood Pressure 132/68 Pulse Oximetry 97 99 Oxygen Delivery Method 11/29/23 14:00 11/29/23 14:00 11/29/23 14:30 Pulse Rate 97 H 98 H Respiratory Rate 29 H 18 Blood Pressure 129/67 Pulse Oximetry 98 99 Oxygen Delivery Method 11/29/23 14:30 11/29/23 15:00 11/29/23 15:30 Pulse Rate Respiratory Rate Blood Pressure 133/60 138/90 126/71 Pulse Oximetry Oxygen Delivery Method 11/29/23 15:30 11/29/23 16:00 11/29/23 16:00 Pulse Rate 96 H 98 H Respiratory Rate 24 30 H Blood Pressure 132/65 Pulse Oximetry 99 98 Oxygen Delivery Method Room Air MDM - Abdominal Pain <Rekha Rosas, DO - Last Filed: 12/07/23 07:13> Lab Data 11/28/23 22:45 11/29/23 11:25 Labs: Lab Results 11/28/23 11/29/23 11/29/23 Range/Units 22:45 04:40 11:25 WBC 8.0 (4.5-11.0) X10^3/uL RBC 5.01 (4.0-5.2) X10^6/uL Hgb 13.2 (12.0-16.0) g/dL Hct 40.1 (36-46) % MCV 80.1 (80-100) fL MCH 26.2 (26-34) PG MCHC 32.8 (30-36) % RDW 14.3 (11.6-14.8) % Plt Count 285 (150-400) X10^3/uL Neut % (Auto) 72.3 (50-75) % Lymph % (Auto) 19.1 L (25-40) % Avery % (Auto) 7.2 (3-14) % Eos % (Auto) 0.7 L (2-4) % Baso % (Auto) 0.7 (0-2) % Neut # (Auto) 5800 (7253-6505) /uL Lymph # (Auto) 1500 (3591-4863) /uL Avery # (Auto) 600 (0-900) /uL Eos # (Auto) 100 (0-450) /uL Baso # (Auto) 100 (0-100) /uL PT 13.3 H (9.4-12.5) SECONDS INR 1.2 (0.9-1.3) APTT 44 H (25.1-36.5) SECONDS Sodium 142 139 (137-145) mmol/L Potassium 4.2 3.8 (3.4-5.1) mmol/L Chloride 109 H 112 H (98-107) mmol/L Carbon Dioxide 15 L 18 L (22-32) mmol/L BUN 15 12 (7-17) mg/dL Creatinine 1.24 H 1.11 H (0.52-1.04) mg/dL Estimated GFR > 60 > 60 (>60) mL/min BUN/Creatinine Ratio 12.1 10.8 (6-22) Glucose 104 H 92 (70-100) mg/dL Lactate 1.3 (0.7-2.1) mmol/L Calcium 10.7 H 9.0 (8.4-10.2) mg/dL Total Bilirubin 0.5 0.5 (0.2-1.3) mg/dL AST 30 21 (14-36) IU/L ALT 36 H 30 (<35) IU/L Alkaline Phosphatase 110 89 (38-126) U/L Total Protein 8.7 H 7.6 (6.3-8.2) g/dL Albumin 4.9 4.2 (3.5-5.0) g/dL Globulin 3.8 3.4 (1.7-4.1) g/dL Albumin/Globulin Ratio 1.3 1.2 (1.0-2.8) Lipase 81 (23-300) U/L Procalcitonin 0.07 (<0.5) ng/mL Serum , Qual Negative (Negative) Urine RBC 1-5/hpf D (0-5/HPF) Urine WBC 0-1/hpf (0-5/HPF) Ur Squamous Epith Cells 0-1 /hpf (0-5/HPF) Urine Bacteria Few (2-10) H (None) Ur Culture Indicated? Cult not indicated Vol Urine Centrifuged 10ml (spun) A.calcoaceticus-baumannii cmplx PCR (Not Detect) Bacteroides fragilis (Not Detect) Venessa albicans (PCR) (Not Detect) Venessa auris (PCR) (Not Detect) C. glabrata (PCR) (Not Detect) C. krusei (PCR) (Not Detect) C. parapsilosis (PCR) (Not Detect) C. tropicalis (PCR) (Not Detect) C. neoform/gattii (PCR) (Not Detect) Enterobacterales (PCR) (Not Detect) E. cloacae complex PCR (Not Detect) Enterococc faecalis PCR (Not Detect) Enterococc faecium PCR (Not Detect) E. coli (PCR) (Not Detect) H. influenzae (PCR) (Not Detect) Klebsiella aerogenes (PCR) (Not Detect) Klebsiella oxytoca PCR (Not Detect) Klebsiella pneumoniae (Not Detect) List. monocytogenes PCR (Not Detect) N. meningitidis (PCR) (Not Detect) Proteus species (PCR) (Not Detect) Salmonella spp. (PCR) (Not Detect) Serratia marcescens PCR (Not Detect) Staphylococcus sp PCR (Not Detect) Staph aureus (PCR) (Not Detect) mecA/C & MREJ Resist Gene (Not Detect) mecA/C-Methicil Resis Gene (Not Detect) mcr-1 Colistin Res Gene PCR (Not Detect) Staph epidermidis (PCR) (Not Detect) Staph lugdunensis PCR (Not Detect) S. maltophilia (PCR) (Not Detect) Streptococcus sp PCR (Not Detect) Group A Strep (PCR) (Not Detect) Strep agalactiae (PCR) (Not Detect) Strep pneumoniae (PCR) (Not Detect) P. aeruginosa (PCR) (Not Detect) Abbie/B-Vanco Res Genes (Not Detect) blaIMP Car res Gene PCR (Not Detect) KPC-Carbap Res Gene PCR (Not Detect) blaNDM Car Res Gene PCR (Not Detect) OXA-48 Carbapenem Resis Gene (PCR) (Not Detect) blaVIM Car Res Gene PCR (Not Detect) CTX-M Gene Resistance (PCR) (Not Detect) 11/29/23 Range/Units 22:45 WBC (4.5-11.0) X10^3/uL RBC (4.0-5.2) X10^6/uL Hgb (12.0-16.0) g/dL Hct (36-46) % MCV (80-100) fL MCH (26-34) PG MCHC (30-36) % RDW (11.6-14.8) % Plt Count (150-400) X10^3/uL Neut % (Auto) (50-75) % Lymph % (Auto) (25-40) % Avery % (Auto) (3-14) % Eos % (Auto) (2-4) % Baso % (Auto) (0-2) % Neut # (Auto) (1489-5509) /uL Lymph # (Auto) (3471-5057) /uL Avery # (Auto) (0-900) /uL Eos # (Auto) (0-450) /uL Baso # (Auto) (0-100) /uL PT (9.4-12.5) SECONDS INR (0.9-1.3) APTT (25.1-36.5) SECONDS Sodium (137-145) mmol/L Potassium (3.4-5.1) mmol/L Chloride (98-107) mmol/L Carbon Dioxide (22-32) mmol/L BUN (7-17) mg/dL Creatinine (0.52-1.04) mg/dL Estimated GFR (>60) mL/min BUN/Creatinine Ratio (6-22) Glucose (70-100) mg/dL Lactate (0.7-2.1) mmol/L Calcium (8.4-10.2) mg/dL Total Bilirubin (0.2-1.3) mg/dL AST (14-36) IU/L ALT (<35) IU/L Alkaline Phosphatase (38-126) U/L Total Protein (6.3-8.2) g/dL Albumin (3.5-5.0) g/dL Globulin (1.7-4.1) g/dL Albumin/Globulin Ratio (1.0-2.8) Lipase (23-300) U/L Procalcitonin (<0.5) ng/mL Serum , Qual (Negative) Urine RBC (0-5/HPF) Urine WBC (0-5/HPF) Ur Squamous Epith Cells (0-5/HPF) Urine Bacteria (None) Ur Culture Indicated? Vol Urine Centrifuged A.calcoaceticus-baumannii cmplx PCR Not detected (Not Detect) Bacteroides fragilis Not detected (Not Detect) Venessa albicans (PCR) Not detected (Not Detect) Venessa auris (PCR) Not detected (Not Detect) C. glabrata (PCR) Not detected (Not Detect) C. krusei (PCR) Not detected (Not Detect) C. parapsilosis (PCR) Not detected (Not Detect) C. tropicalis (PCR) Not detected (Not Detect) C. neoform/gattii (PCR) Not detected (Not Detect) Enterobacterales (PCR) Not detected (Not Detect) E. cloacae complex PCR Not detected (Not Detect) Enterococc faecalis PCR Not detected (Not Detect) Enterococc faecium PCR Not detected (Not Detect) E. coli (PCR) Not detected (Not Detect) H. influenzae (PCR) Not detected (Not Detect) Klebsiella aerogenes (PCR) Not detected (Not Detect) Klebsiella oxytoca PCR Not detected (Not Detect) Klebsiella pneumoniae Not detected (Not Detect) List. monocytogenes PCR Not detected (Not Detect) N. meningitidis (PCR) Not detected (Not Detect) Proteus species (PCR) Not detected (Not Detect) Salmonella spp. (PCR) Not detected (Not Detect) Serratia marcescens PCR Not detected (Not Detect) Staphylococcus sp PCR Detected (Not Detect) Staph aureus (PCR) Not detected (Not Detect) mecA/C & MREJ Resist Gene Not applicable (Not Detect) mecA/C-Methicil Resis Gene Not detected (Not Detect) mcr-1 Colistin Res Gene PCR Not applicable (Not Detect) Staph epidermidis (PCR) Detected (Not Detect) Staph lugdunensis PCR Not detected (Not Detect) S. maltophilia (PCR) Not detected (Not Detect) Streptococcus sp PCR Not detected (Not Detect) Group A Strep (PCR) Not detected (Not Detect) Strep agalactiae (PCR) Not detected (Not Detect) Strep pneumoniae (PCR) Not detected (Not Detect) P. aeruginosa (PCR) Not detected (Not Detect) Abbie/B-Vanco Res Genes Not applicable (Not Detect) blaIMP Car res Gene PCR Not applicable (Not Detect) KPC-Carbap Res Gene PCR Not applicable (Not Detect) blaNDM Car Res Gene PCR Not applicable (Not Detect) OXA-48 Carbapenem Resis Gene (PCR) Not applicable (Not Detect) blaVIM Car Res Gene PCR Not applicable (Not Detect) CTX-M Gene Resistance (PCR) Not applicable (Not Detect) Point of care testing: Point of Care Testing Test Results Negative Urine Dip Bedside Urine Glucose Negative Bedside Urine Bilirubin - Negative Bedside Urine Ketone - Negative Urine Specific [place] 1.015 Bedside Urine Occult Blood +/- Bedside Urine pH 6.5 Bedside Urine Protein ++ 100 Bedside Urine Urobilinogen - Negative Bedside Urine Nitrite - Negative Bedside Urine Leukocytes - Negative Esterase Imaging Data CT scan - abdomen/pelvis: Radiologist's Impression: ch] (More??) Close Abdomen/Pelvis CT (Signed) Gurwinder Burrows - 11/28/23 Chest X-Ray (Signed) Gurwinder Burrows - 11/28/23 Pelvis Ultrasound (Signed) Juhi Bloom - 11/27/23 Abdomen/Pelvis CT (Signed) Freddie Gustafson - 11/27/23 Abdomen/Pelvis CT (Signed) Alexandra Yarbrough - 08/05/22 Pelvis Ultrasound (Signed) Steve Yarbrough - 10/10/21 Chest X-Ray (Signed) Adalgisa Carlton - 09/28/21 Abdomen X-Ray (Signed) Adalgisa Carlton - 05/27/21 DI Result CC 03/22/21 DI Result CC 03/22/21 DI Result CC 03/12/21 DI Result CC 03/08/21 DI Result CC 03/08/21 DI Result CC 02/17/21 DI Result CC 02/08/21 DI Result CC 01/20/21 DI Result CC 08/26/20 DI Result CC 08/25/20 DI Result CC 08/25/20 DI Result CC 08/24/20 DI Result CC 08/22/20 DI Result CC 08/21/20 DI Result CC 08/15/20 DI Result CC 04/19/20 Abdomen X-Ray (Signed) Diego Arguelles - 11/16/19 Ankle X-Ray (Signed) Zoraida Fish - 08/17/18 Launch?[place] [address] CT Scan Report Signed Patient: Felisha Butts MR#: [id number] : 2005 Acct:[id number] Age/Sex: 18 / F Date of Service: 11/28/23 Loc: ED Accession Number: [id number] Procedure: CT abdomen pelvis w con Ordering Provider: Rekha Rosas D.O. PROCEDURE: CT ABDOMEN PELVIS W CON INDICATIONS: abd pain, acute on chronic TECHNIQUE: After the administration of intravenous contrast, axial sections acquired from the lung bases to the pubic symphysis. Coronal and sagittal reformats were performed. For radiation dose reduction, the following was used: automated exposure control, adjustment of mA and/or kV according to patient size. COMPARISON: [facility], CT, CT ABDOMEN PELVIS WO CON, 11/27/2023, 1:25. [facility], US, US PELVIC COMPLETE, 11/27/2023, 3:14. [facility], CR, XR CHEST 1V, 11/29/2023, 0:22. [facility], CT, CT ABDOMEN PELVIS W CON, 08/05/2022, 3:21. FINDINGS: Image quality: Diagnostic. Lower Chest: No significant findings. ABDOMEN: Liver: No solid mass. Gallbladder: No radiopaque gallstones or wall thickening. Biliary ducts: No biliary dilation. Pancreas: No ductal dilation. Spleen: Size is within normal limits. Adrenal Glands: No adrenal nodules. Kidneys and Ureters: The left kidney is absent. The right kidney demonstrates compensatory hypertrophy. No right-sided hydronephrosis is seen. No suspicious right renal lesion can be seen. Stomach and Bowel: The distal colon is decompressed. There is a [id number]-pg-[id number] volume of stool seen within the more proximal colon. There is focal wall thickening seen involving the proximal descending colon. No dilated loops of small bowel are seen. A normal appendix is noted. The stomach demonstrates no significant abnormality. Peritoneum: No abnormal intraperitoneal fluid. No free air. Ventral Wall: Midline abdominal postoperative change is seen. A trace periumbilical hernia is seen, containing fat. No significant ventral hernia. Mild phlegm a loki change can be seen involving the anterior inferior abdominal wall, with soft tissue gas, which is attributed to medication injection. Abdominal Nodes: No retroperitoneal or mesenteric adenopathy by size criteria. Vessels: Aorta and inferior vena cava are normal in size. PELVIS: Pelvic Organs: The uterus appears normal for age. No adnexal masses are seen. Bladder: No bladder wall thickening, accounting for underdistention. Pelvic Nodes: No enlarged lymph nodes. Miscellaneous: No inguinal hernias are seen. Bones: No aggressive osseous abnormality. Mild dextroconvex scoliotic curvature is seen. IMPRESSION: Study similar to the prior, with focal narrowing seen involving the colonic wall within the proximal descending colon. Potential mild functional obstruction can be seen at this site. Solitary right kidney, which appears unremarkable. Inflammatory change of the anterior inferior abdominal wall, with sites of presumed medication injection. Additional findings: Midline upper abdominal postoperative change Trace fat containing periumbilical hernia Normal appendix Dictated by: Gurwinder Burrows M.D. on 11/29/2023 at 0:12 Approved by: Gurwinder Burrows M.D. on 11/29/2023 at 0:18 Chest x-ray: Radiologist's Impression: [address] [address] XRay Report Signed Patient: Felisha Butts MR#: [id number] : 2005 Acct:[id number] Age/Sex: 18 / F Date of Service: 11/28/23 Loc: ED Accession Number: [id number] Procedure: XR chest 1V Ordering Provider: Rekha Rosas D.O. PROCEDURE: XR CHEST 1V INDICATIONS: suspected sepsis TECHNIQUE: One view of the chest was acquired. COMPARISON: [facility], , XR CHEST 1V, 09/28/2021, 20:02. FINDINGS: Surgical changes and devices: There is a left-sided central line seen, with the tip overlying the superior aspect of the superior vena cava Lungs and pleura: Lungs are clear. No pleural effusions or pneumothorax. Mediastinum: Mediastinal contours appear normal. Heart size is normal. Bones and chest wall: No suspicious bony lesions. Overlying soft tissues appear unremarkable. IMPRESSION: No focal infiltrates are seen. The tip of the left-sided central line overlies the superior aspect of the superior vena cava. Dictated by: Gurwinder Burrows M.D. on 11/28/2023 at 23:39 Approved by: Gurwinder Burrows M.D. on 11/28/2023 at 23:39 [facility] Narrative Medical decision making narrative: 18-year-old female with complaint of abdominal pain with emesis in the department. Patient is tachycardic, not hypotensive afebrile. No hypoxia. There were some delays with access and imaging. Patient felt quite anxious about using her catheter for access and had discussions with myself and staff before able to access. Patient was quite painful initially was not willing to go to CT imaging until pain medications were given. Additionally refused attempt for drawing off patient's catheter. After some discussion with nursing they are agreeable. Patient is quite anxious about potential for infection and has had infections in the past in her catheters. Patient's labs show white count of 8 hemoglobin of 13 platelets of 285. INR is 1.2. CMP is 142 potassium is 4 2 with a chloride of 109 CO2 of 15 creatinine of 1.24. Patient has a single kidney and this is fairly close to baseline she appears to range between 1.22 and 1.14 in the last 3 months. Glucose is 104 calcium is 10.7, ALT is 36 but otherwise normal bilirubin, AST, alk-phos and lipase. Procalcitonin is negative. Lactate is negative at 1.3. Negative serum preg. urine shows protein, negative for nitrates, leuks, no bilirubin, negative ketones. Chest xray: Left-sided central line seen with tip overlying aspect of superior vena cava. CT abd/pelvis: Focal narrowing seen involving colonic wall with in the proximal descending colon, show mild functional obstruction can be seen at this site, solitary right kidney, inflammatory changes anterior abdominal wall with sites of presumed medication injection. Related upper abdominal postoperative change. Trace fat containing periumbilical hernia. Normal appendix. Patient follows with [facility], reviewed findings with patient and family. Patient is very anxious and gets quite anxious when she finds out we are going to talk to [facility]. She is still having quite a bit of pain. No additional emesis here but very uncomfortable. We will give a dose of Tylenol with dose of narcotic pain medication. Patient has allergies to ibuprofen. Had long conversation with family. Consult with Marti, for focal narrowing clinic wall you develop bowel obstruction. Patient has stool more proximal but decompressed distally. Patient has continued to have some pain, did give a dose of Tylenol along with Dilaudid. Patient has had several doses of IV narcotics. She is requesting additional antinausea medicine. She tolerates Benadryl Zofran well. We discussed trying something like droperidol Haldol but she states she had a pretty significant reaction when she was 10 to the medication and does not tolerate it. Mom notes that her scopolamine patch will be due to be switched this morning and she is checking of the dosing. We discussed I have talked to the coordinator waiting call back from specialist. Spoke with Dr. Chasity Pickens, hospitalist at [facility]. She has cared for the patient in the past. Feels that patient is appropriate for transfer and accepts but has been placed on the list. We will board here for the time being. Unlikely to have a bed this evening. Plan to continue with fluids, pain management antiemetics. Patient was vomiting initially upon arrival but has not had any additional since then. Heart rate did improve after fluids is now down into the 90s. Updated patient and family. They are comfortable with plan. Mother mentioned driving patient to [facility] but discussed that would not be transfer and they would have to go through the emergency department. Patient did ask if she can have a dose of Benadryl. Has been 6 hours since her last dose. Patient has not had additional emesis, she appears much more comfortable at this time. Patient signed out to Dr. Hurst accepted at [facility] but no bed assignment, on list. <Lexa Hurst MD - Last Filed: 11/30/23 09:44> Lab Data Labs: Lab Results 11/28/23 11/29/23 11/29/23 Range/Units 22:45 04:40 11:25 WBC 8.0 (4.5-11.0) X10^3/uL RBC 5.01 (4.0-5.2) X10^6/uL Hgb 13.2 (12.0-16.0) g/dL Hct 40.1 (36-46) % MCV 80.1 (80-100) fL MCH 26.2 (26-34) PG MCHC 32.8 (30-36) % RDW 14.3 (11.6-14.8) % Plt Count 285 (150-400) X10^3/uL Neut % (Auto) 72.3 (50-75) % Lymph % (Auto) 19.1 L (25-40) % Avery % (Auto) 7.2 (3-14) % Eos % (Auto) 0.7 L (2-4) % Baso % (Auto) 0.7 (0-2) % Neut # (Auto) 5800 (4982-0880) /uL Lymph # (Auto) 1500 (5979-8799) /uL Avery # (Auto) 600 (0-900) /uL Eos # (Auto) 100 (0-450) /uL Baso # (Auto) 100 (0-100) /uL PT 13.3 H (9.4-12.5) SECONDS INR 1.2 (0.9-1.3) APTT 44 H (25.1-36.5) SECONDS Sodium 142 139 (137-145) mmol/L Potassium 4.2 3.8 (3.4-5.1) mmol/L Chloride 109 H 112 H (98-107) mmol/L Carbon Dioxide 15 L 18 L (22-32) mmol/L BUN 15 12 (7-17) mg/dL Creatinine 1.24 H 1.11 H (0.52-1.04) mg/dL Estimated GFR > 60 > 60 (>60) mL/min BUN/Creatinine Ratio 12.1 10.8 (6-22) Glucose 104 H 92 (70-100) mg/dL Lactate 1.3 (0.7-2.1) mmol/L Calcium 10.7 H 9.0 (8.4-10.2) mg/dL Total Bilirubin 0.5 0.5 (0.2-1.3) mg/dL AST 30 21 (14-36) IU/L ALT 36 H 30 (<35) IU/L Alkaline Phosphatase 110 89 (38-126) U/L Total Protein 8.7 H 7.6 (6.3-8.2) g/dL Albumin 4.9 4.2 (3.5-5.0) g/dL Globulin 3.8 3.4 (1.7-4.1) g/dL Albumin/Globulin Ratio 1.3 1.2 (1.0-2.8) Lipase 81 (23-300) U/L Procalcitonin 0.07 (<0.5) ng/mL Serum , Qual Negative (Negative) Urine RBC 1-5/hpf D (0-5/HPF) Urine WBC 0-1/hpf (0-5/HPF) Ur Squamous Epith Cells 0-1 /hpf (0-5/HPF) Urine Bacteria Few (2-10) H (None) Ur Culture Indicated? Cult not indicated Vol Urine Centrifuged 10ml (spun) A.calcoaceticus-baumannii cmplx PCR (Not Detect) Bacteroides fragilis (Not Detect) Venessa albicans (PCR) (Not Detect) Venessa auris (PCR) (Not Detect) C. glabrata (PCR) (Not Detect) C. krusei (PCR) (Not Detect) C. parapsilosis (PCR) (Not Detect) C. tropicalis (PCR) (Not Detect) C. neoform/gattii (PCR) (Not Detect) Enterobacterales (PCR) (Not Detect) E. cloacae complex PCR (Not Detect) Enterococc faecalis PCR (Not Detect) Enterococc faecium PCR (Not Detect) E. coli (PCR) (Not Detect) H. influenzae (PCR) (Not Detect) Klebsiella aerogenes (PCR) (Not Detect) Klebsiella oxytoca PCR (Not Detect) Klebsiella pneumoniae (Not Detect) List. monocytogenes PCR (Not Detect) N. meningitidis (PCR) (Not Detect) Proteus species (PCR) (Not Detect) Salmonella spp. (PCR) (Not Detect) Serratia marcescens PCR (Not Detect) Staphylococcus sp PCR (Not Detect) Staph aureus (PCR) (Not Detect) mecA/C & MREJ Resist Gene (Not Detect) mecA/C-Methicil Resis Gene (Not Detect) mcr-1 Colistin Res Gene PCR (Not Detect) Staph epidermidis (PCR) (Not Detect) Staph lugdunensis PCR (Not Detect) S. maltophilia (PCR) (Not Detect) Streptococcus sp PCR (Not Detect) Group A Strep (PCR) (Not Detect) Strep agalactiae (PCR) (Not Detect) Strep pneumoniae (PCR) (Not Detect) P. aeruginosa (PCR) (Not Detect) Abbie/B-Vanco Res Genes (Not Detect) blaIMP Car res Gene PCR (Not Detect) KPC-Carbap Res Gene PCR (Not Detect) blaNDM Car Res Gene PCR (Not Detect) OXA-48 Carbapenem Resis Gene (PCR) (Not Detect) blaVIM Car Res Gene PCR (Not Detect) CTX-M Gene Resistance (PCR) (Not Detect) 11/29/23 Range/Units 22:45 WBC (4.5-11.0) X10^3/uL RBC (4.0-5.2) X10^6/uL Hgb (12.0-16.0) g/dL Hct (36-46) % MCV (80-100) fL MCH (26-34) PG MCHC (30-36) % RDW (11.6-14.8) % Plt Count (150-400) X10^3/uL Neut % (Auto) (50-75) % Lymph % (Auto) (25-40) % Avery % (Auto) (3-14) % Eos % (Auto) (2-4) % Baso % (Auto) (0-2) % Neut # (Auto) (2638-1304) /uL Lymph # (Auto) (2548-7853) /uL Avery # (Auto) (0-900) /uL Eos # (Auto) (0-450) /uL Baso # (Auto) (0-100) /uL PT (9.4-12.5) SECONDS INR (0.9-1.3) APTT (25.1-36.5) SECONDS Sodium (137-145) mmol/L Potassium (3.4-5.1) mmol/L Chloride (98-107) mmol/L Carbon Dioxide (22-32) mmol/L BUN (7-17) mg/dL Creatinine (0.52-1.04) mg/dL Estimated GFR (>60) mL/min BUN/Creatinine Ratio (6-22) Glucose (70-100) mg/dL Lactate (0.7-2.1) mmol/L Calcium (8.4-10.2) mg/dL Total Bilirubin (0.2-1.3) mg/dL AST (14-36) IU/L ALT (<35) IU/L Alkaline Phosphatase (38-126) U/L Total Protein (6.3-8.2) g/dL Albumin (3.5-5.0) g/dL Globulin (1.7-4.1) g/dL Albumin/Globulin Ratio (1.0-2.8) Lipase (23-300) U/L Procalcitonin (<0.5) ng/mL Serum , Qual (Negative) Urine RBC (0-5/HPF) Urine WBC (0-5/HPF) Ur Squamous Epith Cells (0-5/HPF) Urine Bacteria (None) Ur Culture Indicated? Vol Urine Centrifuged A.calcoaceticus-baumannii cmplx PCR Not detected (Not Detect) Bacteroides fragilis Not detected (Not Detect) Venessa albicans (PCR) Not detected (Not Detect) Venessa auris (PCR) Not detected (Not Detect) C. glabrata (PCR) Not detected (Not Detect) C. krusei (PCR) Not detected (Not Detect) C. parapsilosis (PCR) Not detected (Not Detect) C. tropicalis (PCR) Not detected (Not Detect) C. neoform/gattii (PCR) Not detected (Not Detect) Enterobacterales (PCR) Not detected (Not Detect) E. cloacae complex PCR Not detected (Not Detect) Enterococc faecalis PCR Not detected (Not Detect) Enterococc faecium PCR Not detected (Not Detect) E. coli (PCR) Not detected (Not Detect) H. influenzae (PCR) Not detected (Not Detect) Klebsiella aerogenes (PCR) Not detected (Not Detect) Klebsiella oxytoca PCR Not detected (Not Detect) Klebsiella pneumoniae Not detected (Not Detect) List. monocytogenes PCR Not detected (Not Detect) N. meningitidis (PCR) Not detected (Not Detect) Proteus species (PCR) Not detected (Not Detect) Salmonella spp. (PCR) Not detected (Not Detect) Serratia marcescens PCR Not detected (Not Detect) Staphylococcus sp PCR Detected (Not Detect) Staph aureus (PCR) Not detected (Not Detect) mecA/C & MREJ Resist Gene Not applicable (Not Detect) mecA/C-Methicil Resis Gene Not detected (Not Detect) mcr-1 Colistin Res Gene PCR Not applicable (Not Detect) Staph epidermidis (PCR) Detected (Not Detect) Staph lugdunensis PCR Not detected (Not Detect) S. maltophilia (PCR) Not detected (Not Detect) Streptococcus sp PCR Not detected (Not Detect) Group A Strep (PCR) Not detected (Not Detect) Strep agalactiae (PCR) Not detected (Not Detect) Strep pneumoniae (PCR) Not detected (Not Detect) P. aeruginosa (PCR) Not detected (Not Detect) Abbie/B-Vanco Res Genes Not applicable (Not Detect) blaIMP Car res Gene PCR Not applicable (Not Detect) KPC-Carbap Res Gene PCR Not applicable (Not Detect) blaNDM Car Res Gene PCR Not applicable (Not Detect) OXA-48 Carbapenem Resis Gene (PCR) Not applicable (Not Detect) blaVIM Car Res Gene PCR Not applicable (Not Detect) CTX-M Gene Resistance (PCR) Not applicable (Not Detect) Point of care testing: Point of Care Testing Test Results Negative Urine Dip Bedside Urine Glucose Negative Bedside Urine Bilirubin - Negative Bedside Urine Ketone - Negative Urine Specific [place] 1.015 Bedside Urine Occult Blood +/- Bedside Urine pH 6.5 Bedside Urine Protein ++ 100 Bedside Urine Urobilinogen - Negative Bedside Urine Nitrite - Negative Bedside Urine Leukocytes - Negative Esterase MDM Narrative Medical decision making narrative: 18-year-old female with complaint of abdominal pain with emesis in the department. Patient is tachycardic, not hypotensive afebrile. No hypoxia. There were some delays with access and imaging. Patient felt quite anxious about using her catheter for access and had discussions with myself and staff before able to access. Patient was quite painful initially was not willing to go to CT imaging until pain medications were given. Additionally refused attempt for drawing off patient's catheter. After some discussion with nursing they are agreeable. Patient is quite anxious about potential for infection and has had infections in the past in her catheters. Patient's labs show white count of 8 hemoglobin of 13 platelets of 285. INR is 1.2. CMP is 142 potassium is 4 2 with a chloride of 109 CO2 of 15 creatinine of 1.24. Patient has a single kidney and this is fairly close to baseline she appears to range between 1.22 and 1.14 in the last 3 months. Glucose is 104 calcium is 10.7, ALT is 36 but otherwise normal bilirubin, AST, alk-phos and lipase. Procalcitonin is negative. Lactate is negative at 1.3. Negative serum preg. urine shows protein, negative for nitrates, leuks, no bilirubin, negative ketones. Chest xray: Left-sided central line seen with tip overlying aspect of superior vena cava. CT abd/pelvis: Focal narrowing seen involving colonic wall with in the proximal descending colon, show mild functional obstruction can be seen at this site, solitary right kidney, inflammatory changes anterior abdominal wall with sites of presumed medication injection. Related upper abdominal postoperative change. Trace fat containing periumbilical hernia. Normal appendix. Patient follows with [facility], reviewed findings with patient and family. Patient is very anxious and gets quite anxious when she finds out we are going to talk to [facility]. She is still having quite a bit of pain. No additional emesis here but very uncomfortable. We will give a dose of Tylenol with dose of narcotic pain medication. Patient has allergies to ibuprofen. Had long conversation with family. Consult with Marti, for focal narrowing clinic wall you develop bowel obstruction. Patient has stool more proximal but decompressed distally. Patient has continued to have some pain, did give a dose of Tylenol along with Dilaudid. Patient has had several doses of IV narcotics. She is requesting additional antinausea medicine. She tolerates Benadryl Zofran well. We discussed trying something like droperidol Haldol but she states she had a pretty significant reaction when she was 10 to the medication and does not tolerate it. Mom notes that her scopolamine patch will be due to be switched this morning and she is checking of the dosing. We discussed I have talked to the coordinator waiting call back from specialist. Spoke with Dr. Chasity Pickens, hospitalist at [facility]. She has cared for the patient in the past. Feels that patient is appropriate for transfer and accepts but has been placed on the list. We will board here for the time being. Unlikely to have a bed this evening. Plan to continue with fluids, pain management antiemetics. Patient was vomiting initially upon arrival but has not had any additional since then. Heart rate did improve after fluids is now down into the 90s. Updated patient and family. They are comfortable with plan. Mother mentioned driving patient to [facility] but discussed that would not be transfer and they would have to go through the emergency department. Patient did ask if she can have a dose of Benadryl. Has been 6 hours since her last dose. Patient has not had additional emesis, she appears much more comfortable at this time. Patient signed out to Dr. Hurst accepted at [facility] but no bed assignment, on list. --- Sign out at 7AM. This is a 18yo F w/h/o EDS and complex medical/surgical history as previously described who presented with abdominal pain. She receives TPN in setting of complex GI surgery. She has had median arcuate ligament surgery. This is her second visit for abdominal pain. She received narcotics. Labs reassuring. CT with questionable obstruction. called and accepted transfer, Dr. Pickens (hospitalist) involved. Bed unlikely to be available soon however. Patient very stable. Pain control is current focus. No current vomiting, no NGT. GI will address on her transfer. PLAN: monitor pending transfer. On my review of records, CBC reassuring. INR within normal limits. PTT mildly elevated. Chemistry grossly similar to recent, overall reassuring. Calcium elevated, which could contribute to some abdominal discomfort. Fluids have been given. AST mildly elevated. Procalcitonin reassuring. negative. Urine without clear infection; few bacteria present however no white blood cells. I spoke with Dr. Win at transfer center at 7:26AM. She anticipates very long wait for transfer. We will check with their GI team again to see if transfer is mandatory. CT result below: FINDINGS: Image quality: Diagnostic. Lower Chest: No significant findings. ABDOMEN: Liver: No solid mass. Gallbladder: No radiopaque gallstones or wall thickening. Biliary ducts: No biliary dilation. Pancreas: No ductal dilation. Spleen: Size is within normal limits. Adrenal Glands: No adrenal nodules. Kidneys and Ureters: The left kidney is absent. The right kidney demonstrates compensatory hypertrophy. No right-sided hydronephrosis is seen. No suspicious right renal lesion can be seen. Stomach and Bowel: The distal colon is decompressed. There is a bxbu-ba-zkzhgxhb volume of stool seen within the more proximal colon. There is focal wall thickening seen involving the proximal descending colon. No dilated loops of small bowel are seen. A normal appendix is noted. The stomach demonstrates no significant abnormality. Peritoneum: No abnormal intraperitoneal fluid. No free air. Ventral Wall: Midline abdominal postoperative change is seen. A trace periumbilical hernia is seen, containing fat. No significant ventral hernia. Mild phlegm a loki change can be seen involving the anterior inferior abdominal wall, with soft tissue gas, which is attributed to medication injection. Abdominal Nodes: No retroperitoneal or mesenteric adenopathy by size criteria. Vessels: Aorta and inferior vena cava are normal in size. PELVIS: Pelvic Organs: The uterus appears normal for age. No adnexal masses are seen. Bladder: No bladder wall thickening, accounting for underdistention. Pelvic Nodes: No enlarged lymph nodes. Miscellaneous: No inguinal hernias are seen. Bones: No aggressive osseous abnormality. Mild dextroconvex scoliotic curvature is seen. IMPRESSION: Study similar to the prior, with focal narrowing seen involving the colonic wall within the proximal descending colon. Potential mild functional obstruction can be seen at this site. Solitary right kidney, which appears unremarkable. Inflammatory change of the anterior inferior abdominal wall, with sites of presumed medication injection. Additional findings: Midline upper abdominal postoperative change Trace fat containing periumbilical hernia Normal appendix Dictated by: Gurwinder Burrows M.D. on 11/29/2023 at 0:12 CXR result below: FINDINGS: Surgical changes and devices: There is a left-sided central line seen, with the tip overlying the superior aspect of the superior vena cava Lungs and pleura: Lungs are clear. No pleural effusions or pneumothorax. Mediastinum: Mediastinal contours appear normal. Heart size is normal. Bones and chest wall: No suspicious bony lesions. Overlying soft tissues appear unremarkable. IMPRESSION: No focal infiltrates are seen. The tip of the left-sided central line overlies the superior aspect of the superior vena cava. Dictated by: Gurwinder Burrows M.D. on 11/28/2023 at 23:39 Scheduling home medications via RN. Patient received IM dilaudid for continuation of similar prior pain. I reassessed patient who states she is still having pain despite IM Dilaudid. She states 1 mg IV works better for her, which I am ordering for her. She also states in the past, ketamine has worked, and we discussed a trial of a sub- dissociative dose; she prefers to try Dilaudid first however then reassess. I discussed extensively her care with her and her mother at bedside. We are awaiting bed at . They understand this and that we are doing everything we can to help. Patient appears well perfused and stable, though anxious. Repeat chemistry overall reassuring/similar to prior. Dilaudid effective for patient. Call from : I spoke at 1:54PM with hospitalist at again, Dr. Win; she states she has spoken with her GI team and they DO NOT recommend transfer. They feel patient can be safely discharged from our ER. They know this patient and reviewed case per our discussion. Reassessment: I discussed update with patient and mother. Patient notes ongoing abdominal pain. She is not sedated. She has nausea and is requesting additional dilaudid. I am giving additional Dilaudid. She has history of narcotic use and likely high tolerance. She is well perfused. Based on report of questionable obstruction on CT, I am planning to treat her and consult our general surgeon to discuss. I spoke with Dr. Puentes of surgery on phone at roughly 3:25PM, reviewing case and imaging. Dr. Puentes reviewed images and states there is NO OBSTRUCTION on CT. She sees no indication for admission here and recommends discharge. She feels imaging is reassuring without acute findings. I reassessed patient again, having reassessed her multiple times today. She appears comfortable. She is resting in bed, alert. She does request another dose of Dilaudid. I have concerns at this point regarding the amount of Dilaudid this patient is receiving, with what appears to be an element of chronic pain. Given that CT is now reassuring per our surgeon, I do not see indication for substantial additional narcotics. I explained this to patient and mother. Again, patient is very stable and appears overall comfortable. However, she appears to have extremely high narcotic tolerance and likely has an element of reliance on narcotics. I am working to do the best that I can for this patient and have expressed my concerns; in compromise with mother and patient, I will give a single additional dose of Dilaudid here, but she is NOT to receive more narcotic medications today. She states she has some home p.o. narcotics and does not require prescription. I reinforced the importance of very close follow up and strict return precautions, and family states they plan to go to the [facility] for further assessment. Patient appears stable for this. Note charge nurse was in room for my assessment. Repeat exam and vital signs reassuring. Questions answered. Plan reviewed. Patient being discharged in stable condition. Please note RR is in high teens and that listed number in high 20s to 30 is NOT accurate on many assessments by myself. Patient has been resting comfortably on many assessments. We had reassuring conversations and agreement on plan. Mother then later prior to discharge requested I return to room and stated she did not feel patient was medically stable due to pain. There have been no changes clinically. I spoke with her and stated that to our assessments patient is stable. I do not see an indication for admission, our general surgeon does not see an indication for admission, and [facility] including their GI specialists (per their hospitalist who I spoke with as documented) do not see an indication for transfer or admission. In this setting, we feel patient should be discharged in stable condition. Mother and patient became very upset with me. I tried to reinforce that I am concerned about patient, but their interaction with me deteriorated substantially. Patient became angry and tearful. Mother stated patient has PTSD and told me to leave. I reinforced I was worried about her and wanted to help. I told her I would be willing to get patient advocate involved, but she declined this. They then told me to leave and not interact with patient further. PLEASE NOTE MY NURSE KESHAV WAS PRESENT THROUGHOUT THIS CONVERSATION AND WITNESSED THIS. Unfortunately, I think this patient does not feel the medical system is treating her well. I have been told by my medical charge entry specialist that the patient/her mother also stated they would refuse care and leave if certain ER physicians they have met before were present today. I am not sure what else I can do to convince her we are trying to help or what else I can provide at this facility. I have tried to involve her specialists, our specialists, review her work up, and treat her as best we can. Despite my best efforts, this patient and her mother are quite upset. However, they refuse any further care here, and they demonstrate capacity in this setting. Despite my efforts, it does not seem they are willing to try to repair this relationship. In this setting, patient is discharging in stable condition. They know they are welcome to return here if patient worsens, and that patient should seek close follow up if not. Please note I also updated Dr. Mccullough from on phone as to this development. --- ADDENDUM: I am opening this note the morning of November 29 solely to add this addendum. This morning, I was brought a positive blood culture with Gram- positive cocci from this patient's stay. This is positive currently in 1/2 bottles per report. This seems more likely to be a contaminant, however I requested my staff immediately call to inform patient and her mother so they can return for medical evaluation. My charge nurse spoke with patient's mother, who states they are already at [facility] seeking further care. They understand our report and necessity of immediate medical re-evaluation. As patient's specialists are at , this seems reasonable at this time. Discharge Plan Departure Patient Disposition: Home Clinical Impression: Abdominal pain Instructions: DI for Abdominal Pain-Adult Activity Restrictions/Additional Instructions: It was a pleasure taking care of you today. It is important to fully read and understand the below. Please ask us if you have any questions. As discussed, it is very important to closely follow up with your primary team. Please be reassessed by a doctor within 2-3 days. No tests or assessments are perfect, and your condition could private branch exchange operator time. If your symptoms change or worsen, it is very important you immediately seek medical care. If you have any new or worsening pain, bleeding, lightheadedness or passing out, shortness of breath, fever, recurring vomiting, confusion, numbness, weakness, or anything else that concerns you, please immediately seek medical care. If you have been prescribed any medications: please read the drug package inserts on how to properly use the medication and any potential side effects. If you had labs (blood tests) or imaging (CT scan or x-rays) done during your visit: please follow up on the results of these with your primary care doctor, as discussed. In addition, please know the results we received today may be preliminary. Our usual practice is to follow up on tests within a few days of a patient's discharge from the Emergency Department and notify you of any changes. These may lead to changes to your treatment plan. However, the best way to obtain and interpret these test results is through your Primary Care Provider. If you need to update your contact information, please stop by the front elevator operator and alert the Registration personnel before you leave the Emergency Department. Thank you for the opportunity to participate in your healthcare. We are always here and happy to see you in the future. Prescriptions: No Action lubiprostone 24 mcg capsule 24 mcg PO BID Qty: 60 3RF levothyroxine 112 mcg tablet 112 mcg PO DAILY Qty: 90 0RF ramelteon 8 mg tablet 8 mg PO BEDTIME Qty: 30 3RF vitamin E 200 unit capsule 200 unit PO DAILY lamotrigine [Lamictal] 100 mg tablet 100 mg PO BID MDD 200 mg Qty: 60 2RF Rx Instructions: Take 1 tab in the morning and 1 tab at bedtime for moodiness sertraline [Zoloft] 100 mg tablet 100 mg PO QDAY MDD 100 mg Qty: 30 2RF Rx Instructions: Take 1 tab mornings for OCD sennosides [senna] 8.6 mg tablet 12.9 mg PO DAILY Qty: 135 0RF norethindrone acetate 5 mg tablet 5 mg PO DAILY Qty: 30 0RF ondansetron 4 mg tablet,disintegrating 4 mg PO Q12H PRN (Reason: nausea and vomiting) Qty: 7 0RF oxycodone-acetaminophen [Percocet] 5-325 mg tablet 1 tab PO Q6H PRN (Reason: pain) Qty: 10 0RF famotidine 20 mg tablet 40 mg PO BID Motegrity 2 mg tablet 2 mg PO DAILY enoxaparin 80 mg/0.8 mL syringe 80 mg Q12H scopolamine base 1 mg over 3 days patch 3 day 1 patch topical Q3D PRN (Reason: Nausea) ezetimibe 10 mg tablet 10 mg PO DAILY Referrals: Aster Meneses MD [Non-Staff] - Stand Alone Forms: Patient Portal/API
[2023-11-28 22:57] LABS: Add Manual Diff / Slide Review NO; Basophils Absolute Auto 100 /uL (0-100); Basophils Percent Auto 0.7 % (0-2); Eosinophils Absolute Auto 100 /uL (0-450); Eosinophils Percent Auto 0.7 % (2-4); Hematocrit 40.1 % (36-46); Hemoglobin 13.2 g/dL (12.0-16.0); Lymphocytes Absolute Auto 1500 /uL (1100-4500); Lymphocytes Percent Auto 19.1 % (25-40); Mean Corpuscular HGB Conc 32.8 % (30-36); Mean Corpuscular Hemoglobin 26.2 PG (26-34); Mean Corpuscular Volume 80.1 fL (80-100); Monocytes Absolute Auto 600 /uL (0-900); Monocytes Percent Auto 7.2 % (3-14); Neutrophils Absolute Auto 5800 /uL (1500-7000); Neutrophils Percent Auto 72.3 % (50-75); Platelet Count 285 X10^3/uL (150-400); Red Blood Cell Count 5.01 X10^6/uL (4.0-5.2); Red Cell Distribution Width 14.3 % (11.6-14.8)
[2023-11-28 23:10] LABS: Alanine Aminotransferase 36 IU/L (<35); Albumin 4.9 g/dL (3.5-5.0); Albumin Globulin Ratio 1.3 (1.0-2.8); Alkaline Phosphatase 110 U/L (38-126); Aspartate Aminotransferase 30 IU/L (14-36); BUN Creatinine Ratio 12.1 (6-22); Bilirubin Total 0.5 mg/dL (0.2-1.3); Blood Urea Nitrogen 15 mg/dL (7-17); Calcium 10.7 mg/dL (8.4-10.2); Carbon Dioxide 15 mmol/L (22-32); Chloride 109 mmol/L (98-107); Estimated Glomerular Filt Rate > 60 mL/min (>60); Globulin 3.8 g/dL (1.7-4.1); Glucose 104 mg/dL (70-100); HEMOLYSIS < 15 (0-50); Lactate (Lactic Acid) 1.3 mmol/L (0.7-2.1); Lipase 81 U/L (23-300); Potassium 4.2 mmol/L (3.4-5.1); Sodium 142 mmol/L (137-145); Total Protein 8.7 g/dL (6.3-8.2)
--- NOTE | 2023-11-28 23:13 | DI.CT.S_ITS ---
PROCEDURE: CT ABDOMEN PELVIS W CON INDICATIONS: abd pain, acute on chronic TECHNIQUE: After the administration of intravenous contrast, axial sections acquired from the lung bases to the pubic symphysis. Coronal and sagittal reformats were performed. For radiation dose reduction, the following was used: automated exposure control, adjustment of mA and/or kV according to patient size. COMPARISON: [facility], CT, CT ABDOMEN PELVIS WO CON, 11/27/2023, 1:25. [facility], US, US PELVIC COMPLETE, 11/27/2023, 3:14. [facility], CR, XR CHEST 1V, 11/29/2023, 0:22. [facility], CT, CT ABDOMEN PELVIS W CON, 08/05/2022, 3:21. FINDINGS: Image quality: Diagnostic. Lower Chest: No significant findings. ABDOMEN: Liver: No solid mass. Gallbladder: No radiopaque gallstones or wall thickening. Biliary ducts: No biliary dilation. Pancreas: No ductal dilation. Spleen: Size is within normal limits. Adrenal Glands: No adrenal nodules. Kidneys and Ureters: The left kidney is absent. The right kidney demonstrates compensatory hypertrophy. No right-sided hydronephrosis is seen. No suspicious right renal lesion can be seen. Stomach and Bowel: The distal colon is decompressed. There is a [id number] volume of stool seen within the more proximal colon. There is focal wall thickening seen involving the proximal descending colon. No dilated loops of small bowel are seen. A normal appendix is noted. The stomach demonstrates no significant abnormality. Peritoneum: No abnormal intraperitoneal fluid. No free air. Ventral Wall: Midline abdominal postoperative change is seen. A trace periumbilical hernia is seen, containing fat. No significant ventral hernia. Mild phlegm a loki change can be seen involving the anterior inferior abdominal wall, with soft tissue gas, which is attributed to medication injection. Abdominal Nodes: No retroperitoneal or mesenteric adenopathy by size criteria. Vessels: Aorta and inferior vena cava are normal in size. PELVIS: Pelvic Organs: The uterus appears normal for age. No adnexal masses are seen. Bladder: No bladder wall thickening, accounting for underdistention. Pelvic Nodes: No enlarged lymph nodes. Miscellaneous: No inguinal hernias are seen. Bones: No aggressive osseous abnormality. Mild dextroconvex scoliotic curvature is seen. IMPRESSION: Study similar to the prior, with focal narrowing seen involving the colonic wall within the proximal descending colon. Potential mild functional obstruction can be seen at this site. Solitary right kidney, which appears unremarkable. Inflammatory change of the anterior inferior abdominal wall, with sites of presumed medication injection. Additional findings: Midline upper abdominal postoperative change Trace fat containing periumbilical hernia Normal appendix Dictated by: Gurwinder Burrows M.D. on 11/29/2023 at 0:12 Approved by: Gurwinder Burrows M.D. on 11/29/2023 at 0:18
[2023-11-28 23:16] LABS: INR 1.2 (0.9-1.3); Prothrombin Time 13.3 SECONDS (9.4-12.5)
[2023-11-28 23:18] LABS: PTT Partial Thromboplastin Tim 44 SECONDS (25.1-36.5)
[2023-11-28 23:26] LABS: Procalcitonin 0.07 ng/mL (<0.5)
[2023-11-28] MEDS: diphenhydrAMINE 50 MG/ML VIAL IV (23:26)
--- NOTE | 2023-11-28 23:54 | PC.NURSE ---
Attempted 1 us guided iv. after failure, pt did not want anymore attempts and agreed to use tunneled central line for CT scan.
--- NOTE | 2023-11-28 23:56 | PC.NURSE ---
After multiple attempts to take patient for xray and CT, patient states she wants to have pain medication now. Patient states she will not lay flat for CT scan if she does not get pain medications. general technician aware and will let RN know she can take patient to CT and xray. Patient's mother upset that the patient can not have CT scan and mediation now and states I'm concerned that she is a medical emergency and could have a perforation and . Physician aware. Patient on life manager and continuous pulse oximetry, vitals trending.
[2023-11-29] VITALS (37 sets, daily range): BP systolic 113–143; BP diastolic 57–93; PULSE 82–125; RESP 13–35; O2SAT 94–100
[2023-11-29] MEDS: HYDROMORPHONE 1 MG INJ IV ×6 (00:43→15:41)
[2023-11-29 01:01] LABS: Pregnancy Test Serum,Qual Negative (Negative)
[2023-11-29] MEDS: SODIUM CHLORIDE 0.9% 1,000 ML 1000 ML IV (01:03)
[2023-11-29] MEDS: HYDROMORPHONE 0.5 MG INJ IV (02:46)
[2023-11-29] MEDS: SODIUM CHLORIDE 0.9% 1,000 ML 150 ML IV ×2 (02:47→10:12)
[2023-11-29] MEDS: ACETAMINOPHEN IV 1,000 MG/100 ML VIAL 400 MG IV (02:47)
--- NOTE | 2023-11-29 03:53 | PC.NURSE ---
Arrived to pt room and noted pt seemed upset. 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 She refused to allow nursing to be the one to care for her central line. Pt requests to be the one to clap her line and hub scrub between each item that will be pushed/infused in her IV line. Pt refused to allow this nurse to attach IV fluid line, but would attach line under this nurses supervision. Pt refused to allow this nurse when administering pain medications to attach medications to her line. This nurse advised pt and mother that due to being a narcotic that I must be the one to take charge of syringe until it has been administered. The pt did allow this nurse to do so after explanation was given. Pt further goes on to refuse to any previous tubing and fluids including the Tylenol that is already hung in the room. Pt requested that all new tubing and fluids/medications be pulled. After this nurses interaction with pt, she noticed a decrease in anxiety, including no longer crying. Currently pt is requesting that she have a bedside commode, but wants to have it scrubbed down with the strongest solution we have. I advised them that I would try to locate a commode, and bring to their room. Pt mother had offered to clean the commode herself if possible.
[2023-11-29 04:54] LABS: Bacteria Urine Few (2-10); RBC Urine 1-5/HPF (0-5/HPF); Squamous Epithelial Cell Urine 0-1 /HPF (0-5/HPF); Urine Volume 10mL (spun); WBC Urine 0-1/HPF (0-5/HPF)
[2023-11-29 04:55] LABS: Culture Indicated Urine Cult Not Indicated
[2023-11-29] MEDS: ONDANSETRON 4 MG/2 ML INJ IV ×2 (05:09→10:57)
[2023-11-29] MEDS: diphenhydrAMINE 50 MG/ML VIAL 25 MG IV (06:28)
[2023-11-29] MEDS: HYDROMORPHONE 1 MG INJ IM (07:51)
--- NOTE | 2023-11-29 09:44 | PC.NURSE ---
Pt refusing to take morning Synthroid, she sates the needs to take medication with milk, but that she cannot tolerate drinking anything at this moment. Pt requesting additional pain medications. She states that IM dilaudid does not metabolize the same, she also states PO pain medication does not metabolize the same in her body. Dr. Hurst made aware and gave RN verbal order for 0.5 mg Dilaudid. RN returned to pt's room to give pain medication. When RN explained what medication is ordered, pt and family state that they need a different medication and would like to speak with the Doctor. Dr. Hurst at bedside and 1mg Dilaudid ordered.
--- NOTE | 2023-11-29 10:34 | PC.NURSE ---
Patient and mother expressed concern for her home medications that haven't been taken per patient in 2 days. This RN verified the list of medications that were presented by patient and patient mother. This RN presented this list to provider who asked me to place verbal orders for these medication to be given as verified. This RN placed orders for the medications and attempted to give patient morning medications. Patient refused morning medications and states I cannot swallow medications without my special milk. Patient continues I know that I will just vomit if I take them. Patient declined all oral medications. Mom and patient asked about patient receiving TPN that she gets at home. This RN called Pharmacist and asked if ordered can home TPN could be given. Pharmacist said that storage methods could not be confirmed and therefore wouldn't be allowed to be administered or verified. Family informed. Mom asked that [facility] be informed patient has not received TPN in 3 days. This RN informed transfer center in update. Mom states I will ask grandpa and grandma to bring the milk when they come. Provider updated.
[2023-11-29] MEDS: ENOXAPARIN 100 MG/ML SYRINGE 80 MG SUBCUT (10:57)
[2023-11-29 11:41] LABS: Alanine Aminotransferase 30 IU/L (<35); Albumin 4.2 g/dL (3.5-5.0); Albumin Globulin Ratio 1.2 (1.0-2.8); Alkaline Phosphatase 89 U/L (38-126); Aspartate Aminotransferase 21 IU/L (14-36); BUN Creatinine Ratio 10.8 (6-22); Bilirubin Total 0.5 mg/dL (0.2-1.3); Blood Urea Nitrogen 12 mg/dL (7-17); Carbon Dioxide 18 mmol/L (22-32); Chloride 112 mmol/L (98-107); Estimated Glomerular Filt Rate > 60 mL/min (>60); Globulin 3.4 g/dL (1.7-4.1); Glucose 92 mg/dL (70-100); HEMOLYSIS < 15 (0-50); Potassium 3.8 mmol/L (3.4-5.1); Sodium 139 mmol/L (137-145); Total Protein 7.6 g/dL (6.3-8.2)
--- NOTE | 2023-11-29 11:52 | PC.NURSE ---
This RN informed provider of patient pain level and provider gave verbal order for 1mg IV dilaudid. This RN entered order and administered medication.
[2023-11-29] MEDS: diphenhydrAMINE 50 MG/ML VIAL IV (13:01)
[2023-11-29] MEDS: SCOPOLAMINE 1 PATCH TOP (13:01)
--- NOTE | 2023-11-29 15:16 | PM.CALLCOV.1 ---
Call Coverage Note Note Date of Patient Contact: 11/29/23 Time of Patient Contact: 15:16 Narrative of Care Provided: Possible partial colonic obstruction that is chronic (seen on previous CT's). Needs gastrografin enema to detail the segment of colon. Not available today. Will order in the morning.
[2023-11-29 19:56] LABS: Acinetobacter calcoa-baumannii Not Detected (Not Detect); Bacteroides fragilis Not Detected (Not Detect); Candida albicans Not Detected (Not Detect); Candida auris Not Detected (Not Detect); Candida glabrata Not Detected (Not Detect); Candida krusei Not Detected (Not Detect); Candida parapsilosis Not Detected (Not Detect); Candida tropicalis Not Detected (Not Detect); Cryptococcus neoformans/gatti Not Detected (Not Detect); Enterobacter cloacae complex Not Detected (Not Detect); Enterobacterales Not Detected (Not Detect); Enterococcus faecalis Not Detected (Not Detect); Enterococcus faecium Not Detected (Not Detect); Haemophilus influenzae Not Detected (Not Detect); Klebsiella aerogenes Not Detected (Not Detect); Listeria monocytogenes Not Detected (Not Detect); Neisseria meningitidis Not Detected (Not Detect); Proteus species Not Detected (Not Detect); Pseudomonas aeruginosa Not Detected (Not Detect); Salmonella species Not Detected (Not Detect); Serratia marcescens Not Detected (Not Detect); Staphylococcus epidermidis Detected (Not Detect); Staphylococcus lugdunensis Not Detected (Not Detect); Staphylococcus species Detected (Not Detect); Stenotrophomonas maltophilia Not Detected (Not Detect); Streptococcus agalactiae (Gr B Not Detected (Not Detect); Streptococcus pneumonia Not Detected (Not Detect); Streptococcus pyogenes (Gr A) Not Detected (Not Detect); Streptococcus species Not Detected (Not Detect); mecA/C Resistance Not Detected (Not Detect)
--- NOTE | 2023-11-30 00:39 | PC.NURSE ---
Patient mother, Brielle Butts, calls regarding positive blood culture results that she noticed on her daughter's my chart. Culture results were previous discussed with Dr Motley and ore charger, telephone services sales representative was told to wait for culture and sensitivity and the other cultures to result. This was conveyed to Pt's mom. Pt's mom had further questions and Dr Motley answered questions.
== END 2023-11-29 16:45 | disposition home or self-care (01) ==
PROVIDERS: Emergency Medicine; Emergency Provider Emergency Medicine; PCP Internal Medicine
DX: R79.89 Other specified abnormal findings of blood chemistry (principal); R10.9 Unspecified abdominal pain; M54.50 Low back pain, unspecified
CPT/HCPCS: 36415; 71045; 74177; 80053; 81003; 81015; 81025; 83605; 83690; 84145; 84703; 85025; 85610; 85730; 87040; 87154; 87186; 96361; 96365; 96372; 96375; 99284; J0136; J1170; J1200; J1650; J2405; Q9967

== ENCOUNTER → 2023-12-14 15:57 | Outpatient (ROUT) | payer OTHER, MEDICAID, SELFPAY ==
[2023-12-14 16:29] LABS: Add Manual Diff / Slide Review NO; Basophils Absolute Auto 0 /uL (0-100); Basophils Percent Auto 0.6 % (0-2); Eosinophils Absolute Auto 100 /uL (0-450); Eosinophils Percent Auto 1.9 % (2-4); Hematocrit 35.4 % (36-46); Hemoglobin 11.4 g/dL (12.0-16.0); Lymphocytes Absolute Auto 1600 /uL (1100-4500); Mean Corpuscular HGB Conc 32.3 % (30-36); Mean Corpuscular Hemoglobin 25.9 PG (26-34); Monocytes Absolute Auto 300 /uL (0-900); Monocytes Percent Auto 6.1 % (3-14); Neutrophils Absolute Auto 2600 /uL (1500-7000); Neutrophils Percent Auto 56.4 % (50-75); Platelet Count 259 X10^3/uL (150-400); Red Blood Cell Count 4.43 X10^6/uL (4.0-5.2); Red Cell Distribution Width 14.2 % (11.6-14.8); White Blood Cell Count 4.7 X10^3/uL (4.5-11.0)
[2023-12-14 16:35] LABS: Alanine Aminotransferase 39 IU/L (<35); Albumin 4.5 g/dL (3.5-5.0); Albumin Globulin Ratio 1.4 (1.0-2.8); Alkaline Phosphatase 106 U/L (38-126); Aspartate Aminotransferase 27 IU/L (14-36); BUN Creatinine Ratio 11.9 (6-22); Bilirubin Total 0.4 mg/dL (0.2-1.3); Blood Urea Nitrogen 13 mg/dL (7-17); C-Reactive Protein Quant 0.8 mg/dL (<1.0); Calcium 9.6 mg/dL (8.4-10.2); Carbon Dioxide 20 mmol/L (22-32); Chloride 107 mmol/L (98-107); Estimated Glomerular Filt Rate > 60 mL/min (>60); Globulin 3.3 g/dL (1.7-4.1); Glucose 108 mg/dL (70-100); HEMOLYSIS < 15 (0-50); Magnesium 2.2 mg/dL (1.6-2.3); Phosphorous 3.7 mg/dL (4.5-5.5); Potassium 5.1 mmol/L (3.4-5.1); Sodium 140 mmol/L (137-145); Total Protein 7.8 g/dL (6.3-8.2); Triglycerides 244 mg/dL (35-150)
[2023-12-14 16:40] LABS: Prealbumin 39.7 mg/dL (17.6-36.0)
== END ==
PROVIDERS: PCP Internal Medicine; Visit Provider Internal Medicine
DX: K59.9 Functional intestinal disorder, unspecified (principal); R11.0 Nausea; Z79.899 Other long term (current) drug therapy; D50.9 Iron deficiency anemia, unspecified
CPT/HCPCS: 80053; 83735; 84100; 84134; 84478; 85025; 86140

== ENCOUNTER → 2023-12-28 18:44 | Outpatient (ROUT) | payer OTHER, MEDICAID, SELFPAY ==
[2023-12-28 19:05] LABS: Add Manual Diff / Slide Review NO; Basophils Absolute Auto 100 /uL (0-100); Basophils Percent Auto 1.1 % (0-2); Eosinophils Absolute Auto 100 /uL (0-450); Eosinophils Percent Auto 1.7 % (2-4); Hematocrit 35.7 % (36-46); Hemoglobin 11.4 g/dL (12.0-16.0); Lymphocytes Absolute Auto 1900 /uL (1100-4500); Lymphocytes Percent Auto 38.2 % (25-40); Mean Corpuscular HGB Conc 31.9 % (30-36); Mean Corpuscular Hemoglobin 25.8 PG (26-34); Mean Corpuscular Volume 80.9 fL (80-100); Monocytes Absolute Auto 300 /uL (0-900); Monocytes Percent Auto 5.3 % (3-14); Neutrophils Absolute Auto 2700 /uL (1500-7000); Neutrophils Percent Auto 53.7 % (50-75); Platelet Count 228 X10^3/uL (150-400); Red Blood Cell Count 4.41 X10^6/uL (4.0-5.2); Red Cell Distribution Width 15.2 % (11.6-14.8)
== END ==
PROVIDERS: PCP Internal Medicine; Visit Provider Internal Medicine
DX: K59.9 Functional intestinal disorder, unspecified (principal); R11.0 Nausea; Z79.899 Other long term (current) drug therapy; D50.9 Iron deficiency anemia, unspecified
CPT/HCPCS: 85025

== ENCOUNTER → 2024-01-04 16:44 | Outpatient (ROUT) | payer OTHER, MEDICAID, SELFPAY ==
[2024-01-04 16:53] LABS: Add Manual Diff / Slide Review NO; Basophils Absolute Auto 0 /uL (0-100); Basophils Percent Auto 0.6 % (0-2); Eosinophils Absolute Auto 100 /uL (0-450); Eosinophils Percent Auto 1.9 % (2-4); Hematocrit 35.3 % (36-46); Hemoglobin 11.3 g/dL (12.0-16.0); Lymphocytes Absolute Auto 1600 /uL (1100-4500); Mean Corpuscular HGB Conc 32.1 % (30-36); Mean Corpuscular Volume 80.9 fL (80-100); Monocytes Absolute Auto 400 /uL (0-900); Monocytes Percent Auto 7.1 % (3-14); Neutrophils Absolute Auto 3800 /uL (1500-7000); Neutrophils Percent Auto 63.4 % (50-75); Platelet Count 244 X10^3/uL (150-400); Red Blood Cell Count 4.36 X10^6/uL (4.0-5.2); Red Cell Distribution Width 15.2 % (11.6-14.8); White Blood Cell Count 5.9 X10^3/uL (4.5-11.0)
[2024-01-04 17:28] LABS: Alanine Aminotransferase 19 IU/L (<35); Albumin 4.3 g/dL (3.5-5.0); Albumin Globulin Ratio 1.3 (1.0-2.8); Alkaline Phosphatase 114 U/L (38-126); Aspartate Aminotransferase 20 IU/L (14-36); BUN Creatinine Ratio 13.2 (6-22); Bilirubin Total 0.3 mg/dL (0.2-1.3); Blood Urea Nitrogen 14 mg/dL (7-17); C-Reactive Protein Quant 0.6 mg/dL (<1.0); Calcium 9.6 mg/dL (8.4-10.2); Carbon Dioxide 22 mmol/L (22-32); Chloride 107 mmol/L (98-107); Estimated Glomerular Filt Rate > 60 mL/min (>60); Globulin 3.3 g/dL (1.7-4.1); Glucose 89 mg/dL (70-100); HEMOLYSIS 29 (0-50); Magnesium 2.3 mg/dL (1.6-2.3); Phosphorous 3.9 mg/dL (4.5-5.5); Potassium 5.3 mmol/L (3.4-5.1); Sodium 140 mmol/L (137-145); Total Protein 7.6 g/dL (6.3-8.2); Triglycerides 271 mg/dL (35-150)
[2024-01-04 17:34] LABS: Prealbumin 37.7 mg/dL (17.6-36.0)
== END ==
PROVIDERS: PCP Internal Medicine; Visit Provider Internal Medicine
DX: K59.9 Functional intestinal disorder, unspecified (principal); R11.0 Nausea; Z79.899 Other long term (current) drug therapy; D50.9 Iron deficiency anemia, unspecified
CPT/HCPCS: 80053; 83735; 84100; 84134; 84478; 85025; 86140

== ENCOUNTER → 2024-01-18 19:02 | Outpatient (ROUT) | payer OTHER, MEDICAID, SELFPAY ==
[2024-01-18 19:36] LABS: Alanine Aminotransferase 13 IU/L (<35); Albumin 4.9 g/dL (3.5-5.0); Albumin Globulin Ratio 1.6 (1.0-2.8); Alkaline Phosphatase 95 U/L (38-126); Aspartate Aminotransferase 19 IU/L (14-36); BUN Creatinine Ratio 13.7 (6-22); Bilirubin Total 0.4 mg/dL (0.2-1.3); Blood Urea Nitrogen 14 mg/dL (7-17); Calcium 9.8 mg/dL (8.4-10.2); Carbon Dioxide 19 mmol/L (22-32); Chloride 107 mmol/L (98-107); Estimated Glomerular Filt Rate > 60 mL/min (>60); Glucose 81 mg/dL (70-100); HEMOLYSIS 35 (0-50); Magnesium 2.1 mg/dL (1.6-2.3); Phosphorous 4.6 mg/dL (4.5-5.5); Sodium 139 mmol/L (137-145); Total Protein 7.9 g/dL (6.3-8.2)
[2024-01-18 19:45] LABS: Add Manual Diff / Slide Review NO; Basophils Absolute Auto 0 /uL (0-100); Basophils Percent Auto 0.4 % (0-2); Eosinophils Absolute Auto 100 /uL (0-450); Eosinophils Percent Auto 1.8 % (2-4); Hematocrit 34.9 % (36-46); Hemoglobin 11.2 g/dL (12.0-16.0); Lymphocytes Absolute Auto 1900 /uL (1100-4500); Lymphocytes Percent Auto 39.7 % (25-40); Mean Corpuscular HGB Conc 32.1 % (30-36); Mean Corpuscular Hemoglobin 25.7 PG (26-34); Mean Corpuscular Volume 79.8 fL (80-100); Monocytes Absolute Auto 300 /uL (0-900); Monocytes Percent Auto 6.7 % (3-14); Neutrophils Absolute Auto 2500 /uL (1500-7000); Neutrophils Percent Auto 51.4 % (50-75); Platelet Count 222 X10^3/uL (150-400); Red Blood Cell Count 4.37 X10^6/uL (4.0-5.2); Red Cell Distribution Width 16.1 % (11.6-14.8); White Blood Cell Count 4.8 X10^3/uL (4.5-11.0)
[2024-01-18 19:56] LABS: Potassium 5.4 mmol/L (3.4-5.1)
== END ==
PROVIDERS: PCP Internal Medicine; Visit Provider Internal Medicine
DX: K59.9 Functional intestinal disorder, unspecified (principal); R11.0 Nausea; D50.9 Iron deficiency anemia, unspecified; Z79.899 Other long term (current) drug therapy
CPT/HCPCS: 80053; 83735; 84100; 84590; 85025

== ENCOUNTER → 2024-02-01 18:10 | Outpatient (ROUT) | payer OTHER, MEDICAID, SELFPAY ==
[2024-02-01 18:40] LABS: Add Manual Diff / Slide Review NO; Basophils Absolute Auto 0 /uL (0-100); Basophils Percent Auto 0.4 % (0-2); Eosinophils Absolute Auto 100 /uL (0-450); Eosinophils Percent Auto 1.8 % (2-4); Hematocrit 34.4 % (36-46); Hemoglobin 11.1 g/dL (12.0-16.0); Lymphocytes Absolute Auto 1900 /uL (1100-4500); Lymphocytes Percent Auto 32.8 % (25-40); Mean Corpuscular HGB Conc 32.3 % (30-36); Mean Corpuscular Hemoglobin 25.5 PG (26-34); Mean Corpuscular Volume 78.9 fL (80-100); Monocytes Absolute Auto 400 /uL (0-900); Monocytes Percent Auto 7.5 % (3-14); Neutrophils Absolute Auto 3300 /uL (1500-7000); Neutrophils Percent Auto 57.5 % (50-75); Platelet Count 243 X10^3/uL (150-400); Red Blood Cell Count 4.36 X10^6/uL (4.0-5.2); Red Cell Distribution Width 15.9 % (11.6-14.8); White Blood Cell Count 5.8 X10^3/uL (4.5-11.0)
[2024-02-01 18:42] LABS: Alanine Aminotransferase 11 IU/L (<35); Albumin 4.8 g/dL (3.5-5.0); Albumin Globulin Ratio 1.6 (1.0-2.8); Alkaline Phosphatase 96 U/L (38-126); Aspartate Aminotransferase 15 IU/L (14-36); BUN Creatinine Ratio 11.7 (6-22); Bilirubin Total 0.3 mg/dL (0.2-1.3); Blood Urea Nitrogen 12 mg/dL (7-17); C-Reactive Protein Quant < 0.5 mg/dL (<1.0); Calcium 9.7 mg/dL (8.4-10.2); Carbon Dioxide 21 mmol/L (22-32); Chloride 107 mmol/L (98-107); Estimated Glomerular Filt Rate > 60 mL/min (>60); Glucose 82 mg/dL (70-100); HEMOLYSIS < 15 (0-50); Magnesium 2.3 mg/dL (1.6-2.3); Phosphorous 4.1 mg/dL (4.5-5.5); Sodium 138 mmol/L (137-145); Total Protein 7.8 g/dL (6.3-8.2); Triglycerides 211 mg/dL (35-150)
[2024-02-01 18:45] LABS: Potassium 5.7 mmol/L (3.4-5.1)
[2024-02-01 18:47] LABS: Prealbumin 36.2 mg/dL (17.6-36.0)
== END ==
PROVIDERS: PCP Internal Medicine; Visit Provider Internal Medicine
DX: K59.9 Functional intestinal disorder, unspecified (principal); R11.0 Nausea; D50.9 Iron deficiency anemia, unspecified; Z79.899 Other long term (current) drug therapy
CPT/HCPCS: 80053; 83735; 84100; 84134; 84478; 85025; 86140

== ENCOUNTER 2024-09-23 12:57 | Emergency (ER) | payer OTHER, SELFPAY ==
[2024-09-23 13:05] VITALS: BP 113/69; PULSE 92; RESP 16; TEMP 36; O2SAT 99; BMI 33.9
--- NOTE | 2024-09-23 13:11 | ED_ITS ---
HPI - General Adult General Chief complaint: Nausea/Vomiting/Diarrhea Stated complaint: N/V, Abd pain Time Seen by Provider: 09/23/24 13:11 History of Present Illness HPI narrative: 19-year-old woman complex medical history followed at the [facility] severe gastroparesis with central line for TPN, history of Juanita Danlos, pots, chronic abdominal pain with N J-tube, Dillard catheter in place, discharge from the [facility] earlier this month with an almost 3 month stay presents with increasing abdominal pain. She rarely has episodes of emesis and has 3 episodes of emesis today. She and her mother were on the way to the [facility] and her pain was such that they diverted to our emergency department for more urgent evaluation. They are concerned she has a bowel obstruction. She is on fairly large doses of routine narcotics daily crushed through her [place] line it was concerned that she has vomited all of her narcotics up exacerbating her current symptoms. She is already taken 8 mg of IV Zofran at around 10:00 a.m. this morning. Related Data Home Medications Medication Instructions Recorded Confirmed vitamin E 200 unit capsule 200 unit PO DAILY 11/17/18 10/20/19 enoxaparin 80 mg/0.8 mL 80 mg Q12H 11/29/23 11/29/23 subcutaneous syringe ezetimibe 10 mg tablet 10 mg PO DAILY 11/29/23 11/29/23 famotidine 20 mg tablet 40 mg PO BID 11/29/23 11/29/23 prucalopride 2 mg tablet 2 mg PO DAILY 11/29/23 11/29/23 (Motegrity) scopolamine base 1 mg over 3 days 1 patch topical Q3D PRN Nausea 11/29/23 11/29/23 transdermal patch Previous Rx's Medication Instructions Recorded lamotrigine 100 mg tablet 100 mg PO BID Moodiness #60 tabs 01/23/21 (Lamictal) sertraline 100 mg tablet (Zoloft) 100 mg PO QDAY OCD #30 tabs 01/23/21 levothyroxine 112 mcg tablet 112 mcg PO DAILY #90 tabs 04/11/21 lubiprostone 24 mcg capsule 24 mcg PO BID #60 caps 04/11/21 ramelteon 8 mg tablet 8 mg PO BEDTIME #30 tabs 04/11/21 norethindrone acetate 5 mg tablet 5 mg PO DAILY #30 tabs 06/14/21 ondansetron 4 mg disintegrating 4 mg PO Q12H PRN nausea and 06/14/21 tablet vomiting #7 tabs sennosides 8.6 mg tablet (senna) 12.9 mg (1.5 x 8.6 mg) PO DAILY 06/14/21 #135 tabs oxycodone-acetaminophen 5 mg-325 1 tab PO Q6H PRN pain #10 tabs 08/05/22 mg tablet (Percocet) Allergies Allergy/AdvReac Type Severity Reaction Status Date / Time Sulfa (Sulfonamide Allergy Severe vomit Verified 09/23/24 13:12 Antibiotics) ibuprofen [IBUPROFEN] Allergy Unknown Verified 09/23/24 13:12 pineapple [PINEAPPLE] Allergy Unknown Verified 09/23/24 13:12 gabapentin [GABAPENTIN] AdvReac Unknown tinitus Verified 09/23/24 13:12 lorazepam AdvReac Agitated Verified 09/23/24 13:12 pregabalin [From Lyrica] AdvReac Shakiness Verified 09/23/24 13:12 biopatch Allergy Uncoded 09/23/24 13:12 Review of Systems Review of Systems Narrative: Pertinent positive and negative findings as per HPI Patient History Medical History Family disruption due to divorce Sleep disturbance 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) Chronic back pain (04/30/17) Joint laxity (06/26/17) Acquired absence of kidney (03/27/17) 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) Dysmenorrhea treated with oral contraceptive (03/27/17) Seizure Shoulder subluxation, left Muscle spasm of back Conversion disorder Suicidal ideation Acute psychosis Attention deficit hyperactivity disorder (ADHD), combined type Panic anxiety syndrome Obsessive compulsive disorder Social History Smoking Status: Never smoker Smoking Status: Never smoker Exam Initial Vital Signs Initial Vital Signs: Vital Signs Temperature 96.8 F L 09/23/24 13:05 Pulse Rate 92 H 09/23/24 13:05 Respiratory Rate 16 09/23/24 13:05 Blood Pressure 113/69 09/23/24 13:05 Pulse Oximetry 99 09/23/24 13:05 Oxygen Delivery Method Room Air 09/23/24 13:05 General: Chronically ill and utterly miserable looking young woman. Doubled over and difficulty sitting upright secondary to pain. She is able to speak in full sentences Respiratory: Lungs are clear Full and symmetrical air movement Cardiac: Regular rate and rhythm no murmurs no bruits Abdomen: Patient is unable to sit up enough to allow abdominal exam. Flanks are tender radiating into the abdomen Skin: Somewhat pale, no rashes relatively good perfusion Neurologic: Grossly neurologically intact with no obvious asymmetries or abnormalities Psych: Cooperative, appropriate insight and affect Course Orders Ordered: ED Orders 09/23/24 14:14 XR acute abdomen series Stat 09/23/24 15:00 Complete Blood Count AUTO DIFF Stat Comprehensive Metabolic Panel Stat HCG Quantitative /Beta subunit Stat Lipase Stat Hydromorphone HCl (Hydromorphone 1 Mg Inj) 1 mg IV Q15MIN PRN PRN Reason: Pain, Last Admin: 09/23/24 15:26 Dose: 1 mg Documented By: Admin: 09/23/24 14:25 Dose: 1 mg Documented By: Discontinued Medications Diphenhydramine HCl (Diphenhydramine 50 Mg/Ml Vial) 50 mg IV NOW ONE Stop: 09/23/24 14:15 Last Admin: 09/23/24 14:25 Dose: 50 mg Documented By: Hydromorphone HCl (Hydromorphone 0.5 Mg Inj) 0.5 mg IV NOW ONE Stop: 09/23/24 14:04 Last Admin: 09/23/24 15:32 Dose: Not Given Documented By: Hydromorphone HCl (Hydromorphone 0.5 Mg Inj) 1 mg IV Q15MIN PRN PRN Reason: Pain, Sodium Chloride (Normal Saline 0.9%) 1,000 mls @ 1,000 mls/hr IV BOLUS ONE Stop: 09/23/24 15:02 Last Infusion: 09/23/24 15:34 Dose: Infused Documented By: Infusion: 09/23/24 14:45 Dose: 999 mls/hr Documented By: Admin: 09/23/24 14:26 Dose: 1,000 mls/hr Documented By: Ondansetron HCl (Ondansetron 4 Mg/2 Ml Inj) 4 mg IV NOW ONE Stop: 09/23/24 14:04 Last Admin: 09/23/24 15:33 Dose: Not Given Documented By: Vital Signs Vital signs: Vital Signs - 8 hr 09/23/24 13:05 Temperature 96.8 F L Pulse Rate 92 H Respiratory Rate 16 Blood Pressure 113/69 Pulse Oximetry 99 Oxygen Delivery Method Room Air Medical Decision Making Lab Data 09/23/24 15:00 09/23/24 15:00 Labs: Lab Results 09/23/24 Range/Units 15:00 WBC 6.4 (4.5-11.0) X10^3/uL RBC 4.23 (4.0-5.2) X10^6/uL Hgb 12.6 (12.0-16.0) g/dL Hct 37.8 (36-46) % MCV 89.3 (80-100) fL MCH 29.9 (26-34) PG MCHC 33.5 (30-36) % RDW 13.4 (11.6-14.8) % Plt Count 177 (150-400) X10^3/uL Neut % (Auto) 87.3 H (50-75) % Lymph % (Auto) 8.7 L (25-40) % Acadia % (Auto) 3.8 (3-14) % Eos % (Auto) 0.0 L (2-4) % Baso % (Auto) 0.2 (0-2) % Neut # (Auto) 5600 (0046-0391) /uL Lymph # (Auto) 600 L (6402-5627) /uL Acadia # (Auto) 200 (0-900) /uL Eos # (Auto) 0 (0-450) /uL Baso # (Auto) 0 (0-100) /uL Sodium 137 (137-145) mmol/L Potassium 4.2 (3.4-5.1) mmol/L Chloride 106 (98-107) mmol/L Carbon Dioxide 21 L (22-32) mmol/L BUN 19 H (7-17) mg/dL Creatinine 0.91 (0.52-1.04) mg/dL Estimated GFR > 60 (>60) mL/min BUN/Creatinine Ratio 20.9 (6-22) Glucose 101 H (70-100) mg/dL Calcium 9.4 (8.4-10.2) mg/dL Total Bilirubin 0.3 (0.2-1.3) mg/dL AST 26 (14-36) IU/L ALT 30 (<35) IU/L Alkaline Phosphatase 91 (38-126) U/L Total Protein 7.6 (6.3-8.2) g/dL Albumin 4.5 (3.5-5.0) g/dL Globulin 3.1 (1.7-4.1) g/dL Albumin/Globulin Ratio 1.5 (1.0-2.8) Lipase 710 H (23-300) U/L HCG, Quant < 2.39 mIU/mL MDM Narrative Medical decision making narrative: CC: Persistent vomiting Complicating co-morbidities: Complicated GI history with Juanita Danlos multiple medications, TPN and J tube for feeding, chronic pain recent extended hospitalization of the [facility]. Was on her way to the [facility] for further evaluation but pain and vomiting were severe enough that she stopped here to make sure that there was not a life- threatening issue that needed to be immediately corrected Data collected from: patient, mother Differential considered: Exacerbation of her extensive existing problems, bowel perforation Exam documented above, pertinent findings include: Chronically ill-appearing significant abdominal pain to the point that exam was not initially possible. [place] tube is in place Lab Test results independently reviewed as above. Pertinent findings: CBC does not show significant abnormalities. Patient was concerned about the neutrophils at 87.3%. Without evidence of obvious infection and with a normal white blood cell count I am not particularly concerned with this number currently. Chemistries show normal renal function no electrolyte abnormalities Lipase is elevated at 710. Patient has had an extensive number of CT scans. At this point I do not think that she has acute pancreatitis but it does remain in the differential. She will be following up with her primary doctors at the [facility] within the next couple of days, we will defer additional imaging decisions to her primary care team Imaging studies independently reviewed: Acute abdominal series shows no obstruction, no free air, [place] tube has not flipped back on itself and appears to be at least extending into the duodenum. Treatments: Fluids, Zofran, Benadryl, Dilaudid Discussion: With fluids pain and nausea medication we have been able to get her vomiting stopped, her pain adequately controlled. She is feeling somewhat better. At this point I believe we have ruled out acute surgical emergency, severe sepsis reasons for hospitalization or emergent transfer to higher level of care. Patient will be discharged and I have recommended that she follow up per recommendations of her primary gastroenterology physicians. Discharge Plan Departure Patient Disposition: Home Clinical Impression: Abdominal pain, acute, Intestinal motility disorder Nausea & vomiting Qualifiers: Vomiting type: unspecified Qualified Code(s): R11.2 - Nausea with vomiting, unspecified Activity Restrictions/Additional Instructions: Thank you for coming in today I believe were able to get the vomiting under control, pain is better controlled at this point. Given you copies of blood work done today. I am not seeing anything that is showing findings significant enough that additional imaging such as CT scan or MRI of the abdomen is warranted at our facility. I do believe it is safe for you to go home continue current medications and feeding as scheduled and follow up per recommendations of your primary physicians If you find that you are getting worse or develop any new symptoms, please feel free to return to the emergency department for further evaluation. Prescriptions: No Action lubiprostone 24 mcg capsule 24 mcg PO BID Qty: 60 3RF levothyroxine 112 mcg tablet 112 mcg PO DAILY Qty: 90 0RF ramelteon 8 mg tablet 8 mg PO BEDTIME Qty: 30 3RF vitamin E 200 unit capsule 200 unit PO DAILY lamotrigine [Lamictal] 100 mg tablet 100 mg PO BID MDD 200 mg Qty: 60 2RF Rx Instructions: Take 1 tab in the morning and 1 tab at bedtime for moodiness sertraline [Zoloft] 100 mg tablet 100 mg PO QDAY MDD 100 mg Qty: 30 2RF Rx Instructions: Take 1 tab mornings for OCD sennosides [senna] 8.6 mg tablet 12.9 mg PO DAILY Qty: 135 0RF norethindrone acetate 5 mg tablet 5 mg PO DAILY Qty: 30 0RF ondansetron 4 mg tablet,disintegrating 4 mg PO Q12H PRN (Reason: nausea and vomiting) Qty: 7 0RF oxycodone-acetaminophen [Percocet] 5-325 mg tablet 1 tab PO Q6H PRN (Reason: pain) Qty: 10 0RF famotidine 20 mg tablet 40 mg PO BID Motegrity 2 mg tablet 2 mg PO DAILY enoxaparin 80 mg/0.8 mL syringe 80 mg Q12H scopolamine base 1 mg over 3 days patch 3 day 1 patch topical Q3D PRN (Reason: Nausea) ezetimibe 10 mg tablet 10 mg PO DAILY Referrals: Juhi Marsh MD [Primary Care Provider] - Stand Alone Forms: Patient Portal/API/Survey
--- NOTE | 2024-09-23 14:03 | PC.NURSE ---
Pt awake and alert. Bent over retching, small amount of green bile colored fluid out. Pt says that she never has BM. Had BM this morning and while vomiting had additional BM. Pt and mother requesting 1 mg Dilaudid given twice at 15 minute intervals as well as Diphenhydramine. Dr Villarreal aware.
--- NOTE | 2024-09-23 14:14 | DI.RAD.S_ITS ---
PROCEDURE: XR ACUTE ABDOMEN SERIES INDICATIONS: pain, concern for obstruction TECHNIQUE: One view chest and two views of the abdomen were acquired. COMPARISON: None. FINDINGS: Surgical changes and devices: An indwelling vascular catheter from left-sided approach crosses the midline and enters the azygos arch area of the superior vena cava region. Additionally, an esophagogastric tube is present likely extending into the duodenum by its appearance.. Chest: Lungs are clear. Heart size is normal. No pleural effusions. No pneumoperitoneum. Abdomen: Bowel gas pattern is normal. No suspicious calcifications. Visualized solid organ contours appear normal. Bones: No suspicious bony lesions. IMPRESSION: No obstruction identified over the visualized abdomen and pelvis. Catheter and tube positioning as discussed. Dictated by: Ryan Chung M.D. on 09/23/2024 at 16:18 Approved by: Ryan Chung M.D. on 09/23/2024 at 16:19
[2024-09-23] MEDS: HYDROMORPHONE 1 MG INJ IV ×2 (14:25→15:26)
[2024-09-23] MEDS: diphenhydrAMINE 50 MG/ML VIAL IV (14:25)
[2024-09-23] MEDS: SODIUM CHLORIDE 0.9% 1,000 ML 1000 ML IV (14:26)
[2024-09-23 15:10] LABS: Add Manual Diff / Slide Review NO; Basophils Absolute Auto 0 /uL (0-100); Basophils Percent Auto 0.2 % (0-2); Eosinophils Absolute Auto 0 /uL (0-450); Hematocrit 37.8 % (36-46); Hemoglobin 12.6 g/dL (12.0-16.0); Lymphocytes Absolute Auto 600 /uL (1100-4500); Lymphocytes Percent Auto 8.7 % (25-40); Mean Corpuscular HGB Conc 33.5 % (30-36); Mean Corpuscular Hemoglobin 29.9 PG (26-34); Mean Corpuscular Volume 89.3 fL (80-100); Monocytes Absolute Auto 200 /uL (0-900); Monocytes Percent Auto 3.8 % (3-14); Neutrophils Absolute Auto 5600 /uL (1500-7000); Neutrophils Percent Auto 87.3 % (50-75); Platelet Count 177 X10^3/uL (150-400); Red Blood Cell Count 4.23 X10^6/uL (4.0-5.2); Red Cell Distribution Width 13.4 % (11.6-14.8); White Blood Cell Count 6.4 X10^3/uL (4.5-11.0)
[2024-09-23 15:18] LABS: Alanine Aminotransferase 30 IU/L (<35); Albumin 4.5 g/dL (3.5-5.0); Albumin Globulin Ratio 1.5 (1.0-2.8); Alkaline Phosphatase 91 U/L (38-126); Aspartate Aminotransferase 26 IU/L (14-36); BUN Creatinine Ratio 20.9 (6-22); Bilirubin Total 0.3 mg/dL (0.2-1.3); Blood Urea Nitrogen 19 mg/dL (7-17); Calcium 9.4 mg/dL (8.4-10.2); Carbon Dioxide 21 mmol/L (22-32); Chloride 106 mmol/L (98-107); Estimated Glomerular Filt Rate > 60 mL/min (>60); Globulin 3.1 g/dL (1.7-4.1); Glucose 101 mg/dL (70-100); HEMOLYSIS < 15 (0-50); Lipase 710 U/L (23-300); Potassium 4.2 mmol/L (3.4-5.1); Sodium 137 mmol/L (137-145); Total Protein 7.6 g/dL (6.3-8.2)
[2024-09-23 15:35] LABS: HCG Quantitative /Beta subunit < 2.39 mIU/mL
[2024-09-23 16:00] VITALS: BP 125/78; PULSE 65; RESP 16; O2SAT 99
[2024-09-23] MEDS: HYDROMORPHONE 1 MG INJ 1.5 MG IV (17:35)
[2024-09-23] MEDS: ONDANSETRON 8 MG in SODIUM CHLORIDE 0.9% 50 ML 216 MG IV (17:38)
[2024-09-23 18:02] VITALS: BP 123/79; PULSE 65; RESP 18; TEMP 36.9; O2SAT 98
--- NOTE | 2024-09-30 13:04 | PC.NURSE ---
late entry- per RN patient was transfered to another hospital with 1738 dose of Ondansetron infusing with transport team.
== END 2024-09-23 18:16 | disposition home or self-care (01) ==
PROVIDERS: Emergency Provider Emergency Medicine; PCP Internal Medicine
DX: R10.9 Unspecified abdominal pain (principal); R11.2 Nausea with vomiting, unspecified; K92.89 Other specified diseases of the digestive system; G90.A Postural orthostatic tachycardia syndrome [POTS]; Z93.4 Other artificial openings of gastrointestinal tract status; Z95.818 Presence of other cardiac implants and grafts
CPT/HCPCS: 74022; 80053; 83690; 84702; 85025; 96361; 96365; 96375; 96376; 99284; J1171; J1200; J2405